=== PATIENT | male | born 1935 | race Caucasian/White ===

== ENCOUNTER 2017-09-02 08:12 | Inpatient (IN) | payer OTHER ==
[~2017-09-02] VITALS: Ht 160 cm; Wt 56.7 kg
[2017-09-02 08:15] VITALS: BP_SYST 112
[2017-09-02] MEDS ORDERED: DEXTROSE 50% JECT 50 ML DISP.SYRIN IVP ONE ×2 (08:30→10:00)
[2017-09-02 09:13] LABS: ANION GAP 8 (5-15); CALCIUM 8.9 mg/dL (8.4-11.0); CHLORIDE 104 mmol/L (98-107); CREATININE 2.48 mg/dL (0.55-1.30); GLUCOSE 110 mg/dL (70-99); HEMATOCRIT 33.4 % (36-54); HEMOGLOBIN 10.8 g/dL (14.0-18.0); MEAN CORPUSCULAR HEMOGLOBIN 31 pg (27-31); MEAN CORPUSCULAR HGB CONC 32 % (32-36); MEAN CORPUSCULAR VOLUME 96 fL (79.0-98.0); PLATELET COUNT (AUTO) 135 K/uL (130-430); POTASSIUM 4.2 mmol/L (3.5-5.1); RED BLOOD CELL COUNT(AUTO) 3.48 MIL/uL (4.2-6.2); RED CELL DISTRIBUTION WIDTH 14.5 % (9.0-15.0); SODIUM SERUM 138 mmol/L (136-145); UREA NITROGEN, BLOOD 54 mg/dL (8-21)
[2017-09-02 09:16] LABS: WHITE BLOOD COUNT (AUTO) 5.7 K/uL (4.8-10.8)
[2017-09-02 09:18] LABS: ALANINE AMINOTRANSFERASE 26 U/L (12-78); ALBUMIN 3.1 g/dL (3.4-4.8); ASPARTATE AMINOTRANSFERASE 34 U/L (10-37); TOTAL BILIRUBIN 0.3 mg/dL (0.0-1.0)
[2017-09-02] MEDS ORDERED: NACL 0.9% 1,000 ML IV ONE (09:30)
[2017-09-02 09:50] LABS: ATYPICAL LYMPHOCYTES % 0 % (0-0); BAND % (MANUAL) 0 % (0-6); BASOPHILS % (MANUAL) 0 % (0-2); EOSINOPHILS % (MANUAL) 3 % (0-7); LYMPHOCYTES % (MANUAL) 20 % (20-46); MONOCYTES % (MANUAL) 7 % (0-11)
[2017-09-02 10:14] LABS: BILIRUBIN,URINE NEGATIVE (NEGATIVE); BLOOD, URINE NEGATIVE (NEGATIVE); CLARITY/URINE CLEAR (CLEAR); COLOR,URINE YELLOW (YELLOW); GLUCOSE,URINE NEGATIVE (NEGATIVE); KETONES,URINE NEGATIVE (NEGATIVE); LEUKOCYTE ESTERASE ,URINE NEGATIVE (NEGATIVE); NITRITE, URINE NEGATIVE (NEGATIVE); PROTEIN URINE NEGATIVE (NEGATIVE); UROBILINOGEN,URINE 0.2 (0.2-1.0)
[2017-09-02] MEDS ORDERED: FURO20TA4 PO (10:58)
[2017-09-02] MEDS ORDERED: CLOP75TA2 PO (11:00)
[2017-09-02] MEDS ORDERED: FERR-57 PO (11:00)
[2017-09-02] MEDS ORDERED: ASPI-1063 PO (11:00)
[2017-09-02] MEDS ORDERED: SITA100T7 PO (11:01)
[2017-09-02] MEDS ORDERED: D5W 1,000 ML IV SCH (11:45)
[2017-09-02 12:50] VITALS: BP_SYST 125
[2017-09-02] MEDS ORDERED: FLU VACC QS 2017-18(36MOS+)/PF 0.5 ML/SYR SYRINGE I.M. PRN (13:15)
[2017-09-02] MEDS ORDERED: INSU100V9 SUBCUT ×2 (14:21)
[2017-09-02] MEDS ORDERED: LIDP TP (14:21)
[2017-09-02] MEDS ORDERED: TEMA15CA51 PO (14:21)
[2017-09-02] MEDS ORDERED: TRAM50TA92 PO (14:21)
[2017-09-02] MEDS ORDERED: GLIM4TAB PO (14:21)
[2017-09-02] MEDS ORDERED: DONE10TA44 PO (14:21)
[2017-09-02] MEDS ORDERED: MELO15TA13 PO (14:21)
[2017-09-02] MEDS ORDERED: TIZA4TAB11 PO (14:21)
[2017-09-02] MEDS ORDERED: ISOS30TA6 PO (14:21)
[2017-09-02] MEDS ORDERED: LIP20 PO (14:21)
[2017-09-02] MEDS ORDERED: POTA-118 PO (14:21)
[2017-09-02] MEDS ORDERED: ALLO100T PO (14:21)
[2017-09-02] MEDS ORDERED: GABA-531 PO (14:21)
[2017-09-02] MEDS ORDERED: LISI-600 PO (14:21)
[2017-09-02 15:06] VITALS: BP_SYST 124
[2017-09-02] MEDS ORDERED: ACETAMINOPHEN 325 MG TABLET PO PRN (17:00)
[2017-09-02] MEDS: FAMOTIDINE 20 MG TABLET PO SCH (17:00)
[2017-09-02] MEDS: D5/0.45 NS 1,000 ML IV SCH (17:48)
[2017-09-02 20:24] VITALS: BP_SYST 109
[2017-09-02] MEDS: ALLOPURINOL 100 MG TABLET (ZYLOPRIM) PO SCH (21:08)
[2017-09-02] MEDS: GABAPENTIN 300 MG CAPSULE PO SCH (21:08)
[2017-09-02] MEDS: ATORVASTATIN 20 MG TABLET PO SCH (21:08)
[2017-09-02] MEDS: DONEPEZIL HCL 5 MG TABLET (ARICEPT) PO SCH (21:08)
[2017-09-02] MEDS: ZOLPIDEM TARTRATE 5 MG TABLET PO PRN (21:18)
[2017-09-02 23:59] VITALS: BP_SYST 126
[2017-09-03] MEDS: D5/0.45 NS 1,000 ML IV SCH (04:29)
[2017-09-03 04:37] VITALS: BP_SYST 122
[2017-09-03 07:19] LABS: BASOPHILS % (AUTO) 0.4 % (0.0-2.0); EOSINOPHILS # (AUTO) 0.3 K/uL (0.0-0.4); EOSINOPHILS % (AUTO) 4.5 % (0.0-4.0); LYMPHOCYTES # (AUTO) 1.6 K/uL (1.0-5.5); LYMPHOCYTES % (AUTO) 25.9 % (20.5-51.5); MEAN CORPUSCULAR HEMOGLOBIN 32 pg (27-31); MEAN CORPUSCULAR HGB CONC 33 % (32-36); MEAN CORPUSCULAR VOLUME 96 fL (79.0-98.0); MONOCYTES # (AUTO) 0.5 K/uL (0.0-1.0); MONOCYTES % (AUTO) 8.6 % (1.7-9.3); NEUTROPHILS # (AUTO) 3.6 K/uL (1.8-7.7); NEUTROPHILS % (AUTO) 60.6 % (40.0-70.0); PLATELET COUNT (AUTO) 161 K/uL (130-430); RED BLOOD CELL COUNT(AUTO) 3.74 MIL/uL (4.2-6.2); RED CELL DISTRIBUTION WIDTH 14.1 % (9.0-15.0)
[2017-09-03 07:51] LABS: ANION GAP 4 (5-15); CALCIUM 9.4 mg/dL (8.4-11.0); CHLORIDE 104 mmol/L (98-107); CREATININE 1.43 mg/dL (0.55-1.30); GLUCOSE 225 mg/dL (70-99); POTASSIUM 4.5 mmol/L (3.5-5.1); SODIUM SERUM 136 mmol/L (136-145); THYROID STIMULATING HORMONE 1.73 uIu/mL (0.34-4.82); UREA NITROGEN, BLOOD 29 mg/dL (8-21)
[2017-09-03 07:57] VITALS: BP_SYST 147
[2017-09-03] MEDS: FAMOTIDINE 20 MG TABLET PO SCH (08:54)
[2017-09-03] MEDS: ALLOPURINOL 100 MG TABLET (ZYLOPRIM) PO SCH ×2 (08:55→20:59)
[2017-09-03] MEDS: CLOPIDOGREL BISULFATE 75 MG TABLET PO SCH (08:55)
[2017-09-03] MEDS: ASPIRIN 81 MG TABLET(ECOTRIN) PO SCH (08:55)
[2017-09-03] MEDS: GABAPENTIN 300 MG CAPSULE PO SCH ×3 (08:55→20:59)
[2017-09-03] MEDS: FERROUS SULFATE 325 MG TABLET.DR PO SCH (08:55)
[2017-09-03 11:45] VITALS: BP_SYST 134
[2017-09-03] MEDS ORDERED: 0.45% NACL 1,000 ML IV SCH (16:45)
[2017-09-03 17:04] VITALS: BP_SYST 138
[2017-09-03] MEDS ORDERED: DEXTROSE 50% JECT 50 ML DISP.SYRIN IVP PRN (17:30)
[2017-09-03] MEDS: INSULIN ASPART 100 UNITS/ML, 10 ML VIAL (NovoLOG) SUBCUT PRN (17:35)
[2017-09-03 20:43] VITALS: BP_SYST 119
[2017-09-03] MEDS: ATORVASTATIN 20 MG TABLET PO SCH (20:59)
[2017-09-03] MEDS: DONEPEZIL HCL 5 MG TABLET (ARICEPT) PO SCH (21:00)
[2017-09-03] MEDS: ZOLPIDEM TARTRATE 5 MG TABLET PO PRN (21:00)
[2017-09-04 00:51] VITALS: BP_SYST 119
[2017-09-04 03:57] VITALS: BP_SYST 151
[2017-09-04 07:23] LABS: ANION GAP 3 (5-15); CALCIUM 9.5 mg/dL (8.4-11.0); CHLORIDE 108 mmol/L (98-107); GLUCOSE 145 mg/dL (70-99); POTASSIUM 4.8 mmol/L (3.5-5.1); SODIUM SERUM 137 mmol/L (136-145); UREA NITROGEN, BLOOD 26 mg/dL (8-21)
[2017-09-04 08:00] VITALS: BP_SYST 155
[2017-09-04] MEDS: GABAPENTIN 300 MG CAPSULE PO SCH (08:41)
[2017-09-04] MEDS: ALLOPURINOL 100 MG TABLET (ZYLOPRIM) PO SCH (08:41)
[2017-09-04] MEDS: CLOPIDOGREL BISULFATE 75 MG TABLET PO SCH (08:41)
[2017-09-04] MEDS: FERROUS SULFATE 325 MG TABLET.DR PO SCH (08:41)
[2017-09-04] MEDS: ASPIRIN 81 MG TABLET(ECOTRIN) PO SCH (08:41)
[2017-09-04] MEDS: FAMOTIDINE 20 MG TABLET PO SCH (08:41)
[2017-09-04] MEDS: INSULIN ASPART 100 UNITS/ML, 10 ML VIAL (NovoLOG) SUBCUT PRN (11:26)
[2017-09-04 12:24] VITALS: BP_SYST 144
[2017-09-04 14:29] VITALS: BP_SYST 140
[2017-09-04 16:35] VITALS: BP_SYST 136
== END 2017-09-04 15:35 | DRG 637 ==
LOC: SED 08:12 → STU 11:34
PROVIDERS: ADMIT Internal Medicine; ATTEND Internal Medicine
DX: E11.649 Type 2 diabetes mellitus with hypoglycemia without coma (principal); G93.41 Metabolic encephalopathy; N17.0 Acute kidney failure with tubular necrosis; E44.0 Moderate protein-calorie malnutrition; N18.9 Chronic kidney disease, unspecified; E11.22 Type 2 diabetes mellitus with diabetic chronic kidney disease; I12.9 Hypertensive chronic kidney disease with stage 1 through stage 4 chronic kidney disease, or unspecified chronic kidney disease; D64.9 Anemia, unspecified; F03.90 Unspecified dementia, unspecified severity, without behavioral disturbance, psychotic disturbance, mood disturbance, and anxiety; I25.10 Atherosclerotic heart disease of native coronary artery without angina pectoris; E78.5 Hyperlipidemia, unspecified; T38.3X5A Adverse effect of insulin and oral hypoglycemic [antidiabetic] drugs, initial encounter; Y92.89 Other specified places as the place of occurrence of the external cause; Z68.22 Body mass index [BMI] 22.0-22.9, adult; Z90.49 Acquired absence of other specified parts of digestive tract; Z95.1 Presence of aortocoronary bypass graft; Z79.4 Long term (current) use of insulin; Z95.5 Presence of coronary angioplasty implant and graft; Z79.84 Long term (current) use of oral hypoglycemic drugs; Z79.02 Long term (current) use of antithrombotics/antiplatelets; Z79.82 Long term (current) use of aspirin; Z79.899 Other long term (current) drug therapy
CPT/HCPCS: 36415; 76770; 80048; 80053; 81003; 82962; 83036; 84443-TC; 85007; 85025; 85027; 87040-TC; 87081; 93005; 96374; 97116-GP; 99285; J1815; J7030; J7060

== ENCOUNTER 2018-09-11 15:10 | Inpatient (IN) | payer MEDICAID, OTHER ==
[~2018-09-11] VITALS: Ht 160 cm; Wt 70.8 kg
--- NOTE | 2018-09-11 06:00 | NUR ---
PHARMACY COMMUNICATION Spoke with Joseline monet order showing on EMAR. Addendum: 09/11/18 at 2312 by Aliyah Wilkes RN Spoke with Pharm at 2310.
[2018-09-11 15:10] VITALS: BP_SYST 146
[~2018-09-11 15:10] MED LIST: ALLO100T PO; ASPI-1153 PO; CLOP75TA2 PO; DONE10TA44 PO; FURO-150 PO; GABA-531 PO; GLIP2.5T3 PO; GLU850 PO; ISOS30TA6 PO; LIP20 PO; NITSL SL; POTA10TA15 PO; SITA100T11 PO; TEMA15CA5 PO; TIZA4TAB11 PO; TRAM50TA92 PO; TRAZ-123 PO
--- NOTE | 2018-09-11 15:10 | NUR ---
Note jose alfredojorge luis in EDM - 09/11/18 at 1555 by JEANNINE Pt states that after he ate breakfast he began to feel dizzy with chills. Pt hot to touch, non-productive cough. Respirations even and non-labored. Denies c/o pain.
--- NOTE | 2018-09-11 15:10 | NUR ---
Pt states that after he ate breakfast he began to feel dizzy with chills. Pt hot to touch, non-productive cough. Respirations even and non-labored.
--- NOTE | 2018-09-11 15:10 | NUR ---
BROUGHT IN BY [facility], PLACED IN BED #2 AND TRIAGED. REPORT GIVEN TO MICHAEL
--- NOTE | 2018-09-11 15:14 | NUR ---
I CALLED OVER TO [facility] FOR REPORT. RECEIVED REPORT FROM MIRNA PLATT.
--- NOTE | 2018-09-11 15:20 | NUR ---
Dr. Little at bedside.
[2018-09-11] MEDS ORDERED: [UNRECOGNIZED DRUG - CODE] TP (15:37)
[2018-09-11] MEDS ORDERED: GLU500 PO (15:37)
[2018-09-11] MEDS ORDERED: HYDR-3606 PO (15:37)
--- NOTE | 2018-09-11 15:37 | NUR ---
Medication reconciliation completed with information provided by SD. Any prior medication reconciliation on file was reviewed and corrected.
[2018-09-11] MEDS ORDERED: NS 1000 ML IV.SOLN IV ONE (15:45)
[2018-09-11] MEDS ORDERED: ACETAMINOPHEN 500 MG TABLET PO ONE (16:00)
[2018-09-11] MEDS ORDERED: VANCOMYCIN HCL 1,000 MG in NS 250 ML IV ONE (16:00)
[2018-09-11] MEDS ORDERED: VANCOMYCIN HCL 1000 MG/VIAL IV ONE (16:05)
[2018-09-11 16:06] LABS: BASOPHILS % (AUTO) 0.5 % (0.0-2.0); EOSINOPHILS # (AUTO) 0.1 K/uL (0.0-0.4); EOSINOPHILS % (AUTO) 1.3 % (0.0-4.0); HEMATOCRIT 42.2 % (36-54); HEMOGLOBIN 13.4 g/dL (14.0-18.0); LYMPHOCYTES # (AUTO) 0.5 K/uL (1.0-5.5); LYMPHOCYTES % (AUTO) 6.6 % (20.5-51.5); MEAN CORPUSCULAR HEMOGLOBIN 31 pg (27-31); MEAN CORPUSCULAR HGB CONC 32 % (32-36); MEAN CORPUSCULAR VOLUME 98 fL (79.0-98.0); MONOCYTES # (AUTO) 0.4 K/uL (0.0-1.0); MONOCYTES % (AUTO) 5.7 % (1.7-9.3); NEUTROPHILS # (AUTO) 5.9 K/uL (1.8-7.7); NEUTROPHILS % (AUTO) 85.9 % (40.0-70.0); PLATELET COUNT (AUTO) 188 K/uL (130-430); RED BLOOD CELL COUNT(AUTO) 4.32 MIL/uL (4.2-6.2); RED CELL DISTRIBUTION WIDTH 14.8 % (9.0-15.0); WHITE BLOOD COUNT (AUTO) 6.9 K/uL (4.8-10.8)
[2018-09-11 16:15] LABS: PROTHROMBIN TIME 10.1 SECS (9.5-12.5)
[2018-09-11 16:16] LABS: ALANINE AMINOTRANSFERASE 43 U/L (12-78); ALBUMIN 3.3 g/dL (3.4-4.8); ASPARTATE AMINOTRANSFERASE 31 U/L (10-37); CALCIUM 9.2 mg/dL (8.4-11.0); CHLORIDE 101 mmol/L (98-107); CREATININE 1.55 mg/dL (0.55-1.30); GLUCOSE 347 mg/dL (70-99); POTASSIUM 4.7 mmol/L (3.5-5.1); SODIUM SERUM 135 mmol/L (136-145); TOTAL BILIRUBIN 0.7 mg/dL (0.0-1.0); UREA NITROGEN, BLOOD 36 mg/dL (8-21)
[2018-09-11 16:23] LABS: ANION GAP 9 (5-15)
[2018-09-11] MEDS ORDERED: INSULIN REGULAR, HUMAN 10 UNITS/0.1 ML INJ IVP ONE (16:30)
[2018-09-11 16:46] LABS: BILIRUBIN,URINE NEGATIVE (NEGATIVE); BLOOD, URINE 1+ (NEGATIVE); CLARITY/URINE CLEAR (CLEAR); COLOR,URINE YELLOW (YELLOW); GLUCOSE,URINE 3+ (NEGATIVE); KETONES,URINE NEGATIVE (NEGATIVE); LEUKOCYTE ESTERASE ,URINE NEGATIVE (NEGATIVE); NITRITE, URINE NEGATIVE (NEGATIVE); PH,URINE 5.5 (5.0-8.0); PROTEIN URINE 1+ (NEGATIVE); UROBILINOGEN,URINE 0.2 (0.2-1.0)
[2018-09-11 16:53] LABS: BACTERIA,URINE FEW /HPF (None Seen); MUCUS,URINE None Seen /LPF (None Seen); RBC,URINE 0-3 /HPF (0-3); WBC,URINE NONE SEEN /HPF (0-3)
--- NOTE | 2018-09-11 17:00 | NUR ---
Resting quietly, eyes clothes, even and non-labored respirations, easily awakens, no needs verbalized at this time. VSS. Family member at bedside.
--- NOTE | 2018-09-11 18:06 | NUR ---
Patient will be admitted to care of Dr. Knight. Admitted to Tele unit. Will go to room 121A. Belongings list completed. Summary report printed. Report will be given at bedside.
--- NOTE | 2018-09-11 18:12 | NUR ---
Dr. Little at bedside to update pt and family member of POC.
--- NOTE | 2018-09-11 18:29 | NUR ---
ADMISSION NOTE Received patient from ER via gurney. Patient admitted with diagnosis of . Patient is awake, alert, oriented X 4. Patient oriented to hospital room, call light, toileting, pain management and safety-teach back done. Patient informed that Rossi will be RN nurse and that their room number is 121C. Personal belongings checked and Belongings List documented. Call light within reach.
[2018-09-11 18:47] VITALS: BP_SYST 116
--- NOTE | 2018-09-11 19:45 | NUR ---
Initial RN note Pt received from ED, Pt AAO, no acute distress noted VSS, satting at 94% on room air. Pt eating dinner at this time. HOB elevated. Pt's daughter at bedside. Call light within reach. Safety measures in place. Bed alarm on. Will continue to monitor.
[2018-09-11] MEDS ORDERED: PIPERACILLIN/TAZO 3.375 GM in NS 50 ML IV SCH (20:00)
--- NOTE | 2018-09-11 21:25 | NUR ---
Dr. Brizuelaium here to examine pt.
[2018-09-11 21:30] VITALS: BP_SYST 100
[2018-09-11] MEDS ORDERED: PIPERACILLIN/TAZOBACTAM 3.375 GM/VIAL (ZOSYN) IV ONE ×2 (21:43→21:54)
[2018-09-11] MEDS ORDERED: NITROGLYCERIN 0.4 MG TAB.SUBL SL SCH (21:45)
[2018-09-11] MEDS ORDERED: TEMAZEPAM 15 MG CAPSULE PO PRN (21:45)
[2018-09-11] MEDS ORDERED: HYDROcodone/ACETAMIN 5-325 MG TAB (NORCO/ VICODIN) PO PRN (21:45)
[2018-09-11] MEDS ORDERED: LevALBUTEROL HCL 1.25 MG/0.5 ML *CONC.* VIAL.NEB (XOPENEX CONC.) INH PRN (21:45)
[2018-09-11] MEDS: traMADol HCL HCL 50 MG TABLET (ULTRAM) PO SCH (22:19)
[2018-09-11] MEDS: KCL 20 mEq in D5/0.45NS 1000mL 1,000 ML IV SCH (22:20)
--- NOTE | 2018-09-11 22:30 | NUR ---
IV Fluids/accucheck Pt asleep easily arousable. IV fluids/antibiotic started as ordered R. AC 20G clear, patent. Blood sugar checked 282, 6 units of Reg insulin given per protocol. Encouraged pt to use call light, pt verb understanding. Call light within reach. To monitor.
[2018-09-11 22:34] VITALS: BP_SYST 116
[2018-09-11] MEDS: INSULIN REGULAR, HUMAN 100 UNITS/ML, 10 ML VIAL (novoLIN R) SUBCUT PRN (22:39)
[2018-09-11] MEDS ORDERED: PIPERACILLIN/TAZOBACTAM 2.25 GM in NS 50 ML IV SCH (23:00)
[2018-09-11] MEDS: LevALBUTEROL HCL 1.25 MG/0.5 ML *CONC.* VIAL.NEB (XOPENEX CONC.) INH SCH (23:12)
[2018-09-12] MEDS ORDERED: PIPERACILLIN/TAZO 3.375/DEX-IS 50 ML IV SCH
--- NOTE | 2018-09-12 00:35 | NUR ---
Rounds Pt asleep. No s/s distress noted. Call light within reach. Bed alarm on. To monitor.
[2018-09-12 00:40] VITALS: BP_SYST 103
--- NOTE | 2018-09-12 02:40 | NUR ---
Rounds Pt assisted to the bathroom per CARE MANAGEMENT ASSISTANT with a walker. Pt voided. Maintained safety precaution. Bed alarm on. Call light within reach. To monitor.
[2018-09-12] MEDS ORDERED: PIPERACILLIN/TAZOBACTAM 2.25 GM VIAL IV ONE (05:35)
[2018-09-12] MEDS: PIPERACILLIN/TAZOBACTAM 2.25 GM in NS 50 ML IV SCH ×4 (05:48→23:33)
--- NOTE | 2018-09-12 06:22 | NUR ---
Closing notes Pt alert/awake. Accucheck 169, 2 units of Reg insulin given per protocol. Pt denies any pain at this time. IVF infusing R. AC 20 G no infiltration noted. Call light/urinal within reach. Safety measures in place. Endorsed to IT SYSTEMS ANALYST CONSULTANT Annemarie.
[2018-09-12] MEDS: INSULIN REGULAR, HUMAN 100 UNITS/ML, 10 ML VIAL (novoLIN R) SUBCUT PRN ×4 (06:24→22:10)
[2018-09-12 07:07] LABS: ANION GAP 6 (5-15); BASOPHILS % (AUTO) 0.8 % (0.0-2.0); CALCIUM 8.6 mg/dL (8.4-11.0); CHLORIDE 105 mmol/L (98-107); CREATININE 1.45 mg/dL (0.55-1.30); EOSINOPHILS # (AUTO) 0.3 K/uL (0.0-0.4); EOSINOPHILS % (AUTO) 4.9 % (0.0-4.0); GLUCOSE 182 mg/dL (70-99); HEMATOCRIT 35.5 % (36-54); HEMOGLOBIN 11.8 g/dL (14.0-18.0); LYMPHOCYTES # (AUTO) 0.9 K/uL (1.0-5.5); LYMPHOCYTES % (AUTO) 16.5 % (20.5-51.5); MEAN CORPUSCULAR HEMOGLOBIN 33 pg (27-31); MEAN CORPUSCULAR HGB CONC 33 % (32-36); MEAN CORPUSCULAR VOLUME 99 fL (79.0-98.0); MONOCYTES # (AUTO) 0.5 K/uL (0.0-1.0); MONOCYTES % (AUTO) 8.5 % (1.7-9.3); NEUTROPHILS % (AUTO) 69.3 % (40.0-70.0); PLATELET COUNT (AUTO) 142 K/uL (130-430); POTASSIUM 4.1 mmol/L (3.5-5.1); RED CELL DISTRIBUTION WIDTH 14.9 % (9.0-15.0); SODIUM SERUM 138 mmol/L (136-145); UREA NITROGEN, BLOOD 31 mg/dL (8-21); WHITE BLOOD COUNT (AUTO) 5.7 K/uL (4.8-10.8)
[2018-09-12] MEDS: LevALBUTEROL HCL 1.25 MG/0.5 ML *CONC.* VIAL.NEB (XOPENEX CONC.) INH SCH ×3 (07:13→22:16)
[2018-09-12 07:25] VITALS: BP_SYST 123
--- NOTE | 2018-09-12 07:40 | NUR ---
AM NOTES: Received patient alert, awake, oriented, receiving breathing treatment,no s/s of cardiopulmonary distress. saturation 100%. vital sign stable, afebrile. ivf infusing well site patent. no swelling or infiltration noted. white board updated. will assess after treatment.call light within reach, bed is low and lock position.
[2018-09-12] MEDS: GABAPENTIN 300 MG CAPSULE PO SCH (09:01)
[2018-09-12] MEDS: CLOPIDOGREL BISULFATE 75 MG TABLET PO SCH (09:02)
[2018-09-12] MEDS: POTASSIUM CHLORIDE 10 MEQ TAB.PRT.SR PO SCH (09:02)
[2018-09-12] MEDS: ISOSORBIDE MONONITRATE 30 MG TAB.ER.24H PO SCH (09:03)
[2018-09-12] MEDS: ALLOPURINOL 100 MG TABLET (ZYLOPRIM) PO SCH ×2 (09:03→22:07)
[2018-09-12] MEDS: FUROSEMIDE 20 MG TABLET PO SCH (09:05)
[2018-09-12] MEDS: ASPIRIN 81 MG TABLET(ECOTRIN) PO SCH (09:07)
[2018-09-12] MEDS: glipiZIDE XL 2.5 MG/TAB (GLUCOTROL XL) PO SCH (09:08)
[2018-09-12] MEDS: KCL 20 mEq in D5/0.45NS 1000mL 1,000 ML IV SCH ×2 (11:10→16:54)
[2018-09-12] MEDS: traMADol HCL HCL 50 MG TABLET (ULTRAM) PO SCH ×2 (11:12→22:07)
--- NOTE | 2018-09-12 11:30 | NUR ---
ACCUCHECK: BLOOD SUGAR 254, 6 UNITS OF REGULAR INSULIN ADMINISTERED AT LEFT UPPER ARM.
[2018-09-12 12:06] VITALS: BP_SYST 110
[2018-09-12] MEDS: VANCOMYCIN HCL 750 MG in NS 250 ML IV SCH (15:05)
--- NOTE | 2018-09-12 15:12 | NUR ---
MD ordered to check saturation : patient stated sob on exertion. dx of pna. 98% on room air. MD ordered to placed 1 liter.
[2018-09-12 16:41] VITALS: BP_SYST 115
--- NOTE | 2018-09-12 18:13 | NUR ---
close notes: all needs mets. vital sign stable, afebrile. no s/s of cardiopulmonary distress. standby assist need when going to the restroom. pt and family updated about the POC. verbalized understanding. no other concerned noted.encourage to call when assistance needed. will endorsed to incoming nurse.
[2018-09-12 20:15] VITALS: BP_SYST 119
--- NOTE | 2018-09-12 20:35 | NUR ---
PATIENT AWAKE SITTING UP IN BED ON NASAL CANNULA @ 1 LPM 02 SAT 96 % SKIN DRY WARM FALL RISK IS HIGH , BED ALARM IS ON PROCEDURES EXPLAINED ASSIST NEEDED .
[2018-09-12] MEDS: traZODone HCL 50 MG TABLET (DESYREL) PO SCH (22:06)
[2018-09-12] MEDS: ATORVASTATIN 20 MG TABLET PO SCH (22:06)
[2018-09-12] MEDS: tiZANidine HCL 4 MG TABLET PO SCH (22:07)
[2018-09-12] MEDS: DONEPEZIL HCL 5 MG TABLET (ARICEPT) PO SCH (22:07)
--- NOTE | 2018-09-12 22:45 | NUR ---
BLOOD SUGAR 199 MG DL , 2 UNITS REGULAR INSULIN SUB Q. ADMINISTER LEFT REAR DELTOID , PATIENT ON CCHO PO DIET JUICE PO GIVEN , TOLERATE .
[2018-09-13 00:29] VITALS: BP_SYST 108
--- NOTE | 2018-09-13 01:51 | NUR ---
ULTRAM 50N MG PO ADMINISTER FOR DISCOMFORT ROUTINE & HELPFUL .
--- NOTE | 2018-09-13 01:53 | NUR ---
ASSIST PATIENT FOR USE OF URINAL CLEAR YELLOW URINE OUT PUT NOTED , PATIENT SIPPING ON WATER PO & TOLERATING .
--- NOTE | 2018-09-13 01:54 | NUR ---
PATIENT ON 02 NASAL CANNULA 1 LPM HOB KEPT ELEVATED , PATIENT IS ALERT FALL MEASURES IMPLEMENTED & EFFECTIVE ASSIST NEEDED BED TO LOW POSITION .
--- NOTE | 2018-09-13 02:33 | NUR ---
PATIENT RESTING THIS HOUR ABLE TO SELF TURN & REPOSITION HOB ELEVATED CHEST MOVEMENT SYMMETRICAL UNLABORED ON ROOM AIR assist as needed bed alarm is ON .
[2018-09-13] MEDS: PIPERACILLIN/TAZOBACTAM 2.25 GM in NS 50 ML IV SCH ×3 (05:53→17:19)
[2018-09-13] MEDS: INSULIN REGULAR, HUMAN 100 UNITS/ML, 10 ML VIAL (novoLIN R) SUBCUT PRN ×3 (05:56→22:24)
--- NOTE | 2018-09-13 06:06 | NUR ---
PATIENT AWAKE ALERT BSG @ 212 MG DL , 4 UNITS OF REGULAR INSULIN SUB Q . ADMINISTER LEFT LOWER ABDOMEN .
[2018-09-13 06:35] LABS: ANION GAP 7 (5-15); CALCIUM 8.7 mg/dL (8.4-11.0); CHLORIDE 102 mmol/L (98-107); CREATININE 1.39 mg/dL (0.55-1.30); GLUCOSE 228 mg/dL (70-99); POTASSIUM 4.4 mmol/L (3.5-5.1); SODIUM SERUM 135 mmol/L (136-145); UREA NITROGEN, BLOOD 23 mg/dL (8-21)
[2018-09-13 06:40] LABS: BASOPHILS % (AUTO) 0.6 % (0.0-2.0); EOSINOPHILS # (AUTO) 0.3 K/uL (0.0-0.4); EOSINOPHILS % (AUTO) 5.6 % (0.0-4.0); HEMATOCRIT 36.3 % (36-54); HEMOGLOBIN 12.1 g/dL (14.0-18.0); LYMPHOCYTES # (AUTO) 0.7 K/uL (1.0-5.5); LYMPHOCYTES % (AUTO) 13.9 % (20.5-51.5); MEAN CORPUSCULAR HEMOGLOBIN 33 pg (27-31); MEAN CORPUSCULAR HGB CONC 33 % (32-36); MEAN CORPUSCULAR VOLUME 98 fL (79.0-98.0); MONOCYTES # (AUTO) 0.5 K/uL (0.0-1.0); MONOCYTES % (AUTO) 9.4 % (1.7-9.3); NEUTROPHILS # (AUTO) 3.6 K/uL (1.8-7.7); NEUTROPHILS % (AUTO) 70.5 % (40.0-70.0); PLATELET COUNT (AUTO) 140 K/uL (130-430); RED BLOOD CELL COUNT(AUTO) 3.71 MIL/uL (4.2-6.2); RED CELL DISTRIBUTION WIDTH 15.2 % (9.0-15.0); WHITE BLOOD COUNT (AUTO) 5.1 K/uL (4.8-10.8)
[2018-09-13] MEDS: LevALBUTEROL HCL 1.25 MG/0.5 ML *CONC.* VIAL.NEB (XOPENEX CONC.) INH SCH ×2 (07:18→23:30)
--- NOTE | 2018-09-13 07:48 | NUR ---
INITIAL NOTE PT AAO X3, RECEIVING BREATHIGN TREATMENT AT THIS TIME. NO S/S OF ACUTE DISTRESS OR PAIN, VSS. IVF INFUSING TO RAC 20GG AT ORDERED RATE, NASAL CANULA AT BEDSIDE FOR 1 LITER O2 PRN. PLAN OF CARE DISCUSSED, PT VERBALIZED UNDERSTANDING, SAFETY PRECAUTIONS IN PLACE, BED ALARM ON, ROOM LOCATED IN FRONT OF NURSING STATION, WILL MONITOR PT CLOSELY
[2018-09-13 08:03] VITALS: BP_SYST 125
[2018-09-13] MEDS: POTASSIUM CHLORIDE 10 MEQ TAB.PRT.SR PO SCH (08:19)
[2018-09-13] MEDS: ASPIRIN 81 MG TABLET(ECOTRIN) PO SCH (08:19)
[2018-09-13] MEDS: glipiZIDE XL 2.5 MG/TAB (GLUCOTROL XL) PO SCH (08:19)
[2018-09-13] MEDS: ISOSORBIDE MONONITRATE 30 MG TAB.ER.24H PO SCH (08:20)
[2018-09-13] MEDS: CLOPIDOGREL BISULFATE 75 MG TABLET PO SCH (08:20)
[2018-09-13] MEDS: ALLOPURINOL 100 MG TABLET (ZYLOPRIM) PO SCH ×2 (08:20→22:16)
[2018-09-13] MEDS: GABAPENTIN 300 MG CAPSULE PO SCH (08:20)
[2018-09-13] MEDS: FUROSEMIDE 20 MG TABLET PO SCH (08:20)
[2018-09-13] MEDS: traMADol HCL HCL 50 MG TABLET (ULTRAM) PO SCH ×2 (09:04→22:17)
--- NOTE | 2018-09-13 09:22 | NUR ---
Nutrition Update Bentley Scale 16 noted. Pt admitted for possible aspiration pneumonia. Diet: [facility] BMI: 26.9 kg/m2 RD to follow per nutrition care standards.
--- NOTE | 2018-09-13 10:15 | NUR ---
ROUNDS PT LAYING TO SIDE IN BED, RESTING, EVEN RISE AND FALL OF CHEST NOTED, NASAL CANULA IN PLACE WITH O2 AT 1 LITER, NO S/S OF ACUTE DISTRESS OR PAIN. DAUGHTER TESSA CALLED RN , UPDATED ON PT STATUS AND PLAN OF CARE, WILL CALL DAUGHTER LATER IN DAY AFTER MD HAS MADE ROUNDS. PHONE CALL TRANSFERRED TO ROOM, NOW PT SPEAKING WITH DAUGHTER. CALL LIGHT IN HAND, SAFETY PRECAUTIONS IN PLACE, WILL CONTINUE TO MONITOR PT CLOSELY.
--- NOTE | 2018-09-13 11:30 | NUR ---
BLOOD SUGAR 335, COVERED PER SLIDING SCALE. IV ANTIBIOTIC ZOSYN HANGED, IV SITE ASSESSED, STILL PATENT AND INTACT, NO S/S OF INFILTRATION NOTED. PT STATES HE IS NOTE GOING TO EAT BECAUSE HE SON IS COMING DOWN TO VISIT HIM AND HE WILL TAKE HIM TO RESTAURANT TO EAT AND BRING HIM BACK. PT EDUCATED THAT HE HAS TO BE DISCHARGED BY MD FIRST, AND HE HASN'T. BUT SON IS MORE THAN WELCOME TO BRING FOOD FROM A RESTAURANT FOR HIM TO EAT HERE DURING HIS STAY, PT VERBALIZED UNDERSTANDING. CALL LIGHT WITHIN REACH, WILL FOLLOW UP
[2018-09-13 11:56] VITALS: BP_SYST 124
--- NOTE | 2018-09-13 13:38 | NUR ---
ROUNDS PT NOTED TO BE ASSISTED TO RESTROOM WITH FWW. MODERATE ASSISTANCE NEEDED. PT ABLE TO GET UP TO RR AND VOID, PT RETURNED TO BED, DOES NOT WANT TO SIT IN BEDSIDE CHAIR, STATES HE WILL GET UP WHEN HIS SON COMES, WILL FOLLOW PUP
[2018-09-13] MEDS: VANCOMYCIN HCL 750 MG in NS 250 ML IV SCH (15:14)
[2018-09-13] MEDS: KCL 20 mEq in D5/0.45NS 1000mL 1,000 ML IV SCH (15:14)
[2018-09-13 15:17] VITALS: BP_SYST 138
--- NOTE | 2018-09-13 15:34 | NUR ---
IV ANTIBIOTIC AND IVF HANGED. IV ANTIBIOTIC VANCOMYCIN HANGED AND IVF CHANGED TO NEW BAG, IV SITE RIGHT AC PATENT, NO S/S OF INFILTRATION NOTED. PT STATES HE IS WAITING FOR HIS SON TO COME, HE WILL BRING HIM GOOD FOOD. PT IS LOOKING FORWARD TP SON COMING. CALL LIGHT WITHIN REACH, SAFETY PRECAUTIONS IN PLACE, WILL FOLLOW UP
--- NOTE | 2018-09-13 17:20 | NUR ---
BLOOD SUGAR 137, NO COVERAGE NEEDED PER SLIDING SCALE. IV ANTIBIOTIC HANGED. SON AT BEDSIDE. UPDATED ON PT STATUS AND PLAN OF CARE. SECURED NASAL CANULA IN PLACE, CALL LIGHT WITHIN REACH, WILL FOLLOW UP
--- NOTE | 2018-09-13 18:45 | NUR ---
CLOSING NOTE PT LAYING TO SIDE IN BED, RELAXING. NO S/S OF ACUTE DISTRESS OR PAIN. BREATHIGN EVEN AND UNLABORED, NASAL CANULA IN PLACE, IVF INFUSING TO RAC AT ORDERED RATE. IV SITE PATENT AND INTACT. ALL NEEDS ATTENDED TO THROUGHOUT SHIFT, SAFETY PRECAUTIONS MAINTAINED, CALL LIGHT WITHIN REACH, WILL GIVE REPORT TO FOLLOWING SHIFT
[2018-09-13 20:00] VITALS: BP_SYST 132
--- NOTE | 2018-09-13 20:00 | NUR ---
INITIAL NOTES: PATIENT IN BED AWAKE ,ALERT ORIENTED X4. DENIES PAIN NOR SOB. TOLERABLE LOW BACK PAIN. IVF INFUSING AT 60ML/HR.,SITE RT. AC CLEAR. O2 AT 2 LITER N/C. BREATHING TX DONE BY RT. SCD RE APPLIED. SINUS RHYTHM .CALL GOEL WITHIN REACH. BED IN LOW POSITION. WILL MONITOR CLOSELY.
--- NOTE | 2018-09-13 21:45 | NUR ---
ALL DUE MEDS GIVEN. NO S/SOF HYPO/HYPERGLYCEMIA.
[2018-09-13] MEDS: DONEPEZIL HCL 5 MG TABLET (ARICEPT) PO SCH (22:16)
[2018-09-13] MEDS: ATORVASTATIN 20 MG TABLET PO SCH (22:16)
[2018-09-13] MEDS: traZODone HCL 50 MG TABLET (DESYREL) PO SCH (22:16)
[2018-09-13] MEDS: tiZANidine HCL 4 MG TABLET PO SCH (22:17)
[2018-09-13 23:45] VITALS: BP_SYST 140
[2018-09-14] MEDS: PIPERACILLIN/TAZOBACTAM 2.25 GM in NS 50 ML IV SCH ×3 (00:25→11:52)
--- NOTE | 2018-09-14 01:30 | NUR ---
ASSISTED BY CARDIOPULMONARY SUPERVISOR TO BATHROOM TO HAVE BOWEL MOVEMENT.
--- NOTE | 2018-09-14 02:33 | NUR ---
patient is sleeping peacefull in his bed with out any complained
[2018-09-14] MEDS: KCL 20 mEq in D5/0.45NS 1000mL 1,000 ML IV SCH (05:59)
[2018-09-14] MEDS: INSULIN REGULAR, HUMAN 100 UNITS/ML, 10 ML VIAL (novoLIN R) SUBCUT PRN ×2 (06:07→11:52)
--- NOTE | 2018-09-14 06:30 | NUR ---
CLOSING: ALL NEEDS WERE ATTENDED. ROUNDS DONE. NEEDS ATTENDED .NO ACUTE CARDIOPULMONARY DISTRESS WHOLE SHIFT.
[2018-09-14 07:12] VITALS: BP_SYST 140
[2018-09-14] MEDS: LevALBUTEROL HCL 1.25 MG/0.5 ML *CONC.* VIAL.NEB (XOPENEX CONC.) INH SCH ×2 (07:12→15:16)
[2018-09-14 08:02] VITALS: BP_SYST 140
--- NOTE | 2018-09-14 08:08 | NUR ---
INITIAL NOTE PT LAYING TO SIDE IN BED, AWAKE, RECEIVING BREATHING TREATMENT, NO S/S OF ACUTE DISTRESS OR PAIN, BREATHING EVEN AND UNLABORED. PLAN OF CARE DISCUSSED, SAFETY PRECAUTIONS DISCUSSED, PT VERBALIZED UNDERSTANDING. CALL LIGHT WITHIN REACH, WILL FOLLOW UP
[2018-09-14] MEDS: ASPIRIN 81 MG TABLET(ECOTRIN) PO SCH (08:51)
[2018-09-14] MEDS: POTASSIUM CHLORIDE 10 MEQ TAB.PRT.SR PO SCH (08:51)
[2018-09-14] MEDS: CLOPIDOGREL BISULFATE 75 MG TABLET PO SCH (08:51)
[2018-09-14] MEDS: ALLOPURINOL 100 MG TABLET (ZYLOPRIM) PO SCH (08:51)
[2018-09-14] MEDS: GABAPENTIN 300 MG CAPSULE PO SCH (08:51)
[2018-09-14] MEDS: ISOSORBIDE MONONITRATE 30 MG TAB.ER.24H PO SCH (08:51)
[2018-09-14] MEDS: glipiZIDE XL 2.5 MG/TAB (GLUCOTROL XL) PO SCH (08:52)
[2018-09-14] MEDS: FUROSEMIDE 20 MG TABLET PO SCH (08:52)
[2018-09-14] MEDS: traMADol HCL HCL 50 MG TABLET (ULTRAM) PO SCH (09:40)
--- NOTE | 2018-09-14 10:00 | NUR ---
TRAMADOL ADMINISTERED PT REQUESTING TO GET UP AND WALK AROUND UNIT, EDUCATED THAT HE WILL NEED SUPERVISION FOR SAFETY AND WHEN STAFF IS AVAILABLE WE WILL WALK HIM. PT VERBALIZED AGREEMENT, WILL FOLLOWUP
--- NOTE | 2018-09-14 11:42 | NUR ---
NOTES ASSISTED PATIENT AROUND THE HOSPITAL WALKING WITH THE WALKER. PATIENT DID REALLY WELL WALKING WITHOUT ANY SHORTNESS OF BREATH.
--- NOTE | 2018-09-14 12:31 | NUR ---
BLOOD SUGAR 164/ IV ANTIBIOTIC HANGED BLOOD SUGAR COVERED PER SLIDING SCALE. PT DENIES ANY NEEDS AT THIS TIME, CALL LIGHT WITHIN REACH, WILL FOLLOW UP
[2018-09-14 12:33] VITALS: BP_SYST 139
--- NOTE | 2018-09-14 14:15 | NUR ---
ROUNDS PT SITTING UP IN BED, SPEAKING WITH CASE MANAGEMENT DIAZ AT BEDSIDE. NO S/S OF RESPIRATORY DISTRESS OR DISCOMFORT. PT DENIES ANY NEEDS AT THIS TIME. NASAL CANULA IN PLACE, CALL LIGHT WITHIN REACH, WILL FOLLOW UP
--- NOTE | 2018-09-14 15:15 | NUR ---
DR WAITE AT BEDSIDE, WILL CARRY OUT ANY NEW ORDERS Addendum: 09/14/18 at 1517 by Barb Liang RN PT TAKEN OF O2 FOR 5 MINUTES TO ASSESS HOW PT TOLERATES, PER MD. PT SATURATES 97% ON ROOM AIR, NO S/S OF ACUTE DISTRESS, BREATHING EVEN AND UNLABORED. PER MD, KEEP PT OFF O2 AND MAY SALINE LOCK IV SITE,
--- NOTE | 2018-09-14 15:50 | NUR ---
SPOKE WITH RADHA AT [facility] TO ARRANGE AUTO EMISSIONS TECHNICIAN FOR PATIENT BACK HOME, RADHA TO LET ANSELMO THE PRODUCTION REPAIRER KNOW OF PENDING AUTO EMISSIONS TECHNICIAN, FACILITY TO RETURN PHONE CALL
--- NOTE | 2018-09-14 15:52 | NUR ---
FOLLOW UP APPT ARRANGED WITH PCP PER CHF DISCHARGE PROTOCOL TOM OBRIEN AT DR SIERRA OFFICE, F/U APPT IS WITHIN 7 DAYS OF DISCHARGE ON DATE : Friday09/18/18 TIME: 0945AM LOCATION: [address] [place], [place] [id number] WITH DR. SIERRA, FREDY DAUGHTER TESSA AND PATIENT MADE AWARE.
[2018-09-14] MEDS: VANCOMYCIN HCL 750 MG in NS 250 ML IV SCH (16:12)
--- NOTE | 2018-09-14 16:47 | NUR ---
SPOKE WITH VERONA FROM [facility], SHE STATED NEUROLOGY PHYSICIAN ASSISTANT WOULD BE HERE IN 20 MINUTES IF PT WILL BE READY, MADE AWARE THAT PT WILL BE READY. PENDING NEUROLOGY PHYSICIAN ASSISTANT
[2018-09-14 16:57] VITALS: BP_SYST 128
[2018-09-14 16:58] VITALS: BP_SYST 139
--- NOTE | 2018-09-14 17:21 | NUR ---
TRANSITION OF CARE/ DISCHARGE INSTRUCTIONS PT EDUCATED TO FOLLOW UP WITH PCP ON FRIDAY APPT ALREADY ARRANGED, DAUGHTER TESSA AWARE
--- NOTE | 2018-09-14 17:27 | NUR ---
D/C Patient Patient given medication reconciliation form and D/C instructions. Exit Care provided. Patient verbalized understanding. MD discussed with patient the results and treatment provided. Ambulatory with steady gait for discharge to home. Patient in stable condition, ID band removed. IV catheter removed, intact and dressing applied, no active bleeding. Patient educated on pain management. All belongings sent with patient.PATIENT LEFT WITH ANSELMO FROM [facility].
== END 2018-09-14 17:27 | disposition home or self-care (01) | DRG 178 ==
LOC: SED 15:10 → STU 18:12
PROVIDERS: ADMIT Family Medicine; ATTEND Family Medicine
DX: J69.0 Pneumonitis due to inhalation of food and vomit (principal); N17.9 Acute kidney failure, unspecified; F03.90 Unspecified dementia, unspecified severity, without behavioral disturbance, psychotic disturbance, mood disturbance, and anxiety; I11.0 Hypertensive heart disease with heart failure; I50.9 Heart failure, unspecified; E11.65 Type 2 diabetes mellitus with hyperglycemia; E78.5 Hyperlipidemia, unspecified; Z79.899 Other long term (current) drug therapy; Z95.1 Presence of aortocoronary bypass graft; Z79.4 Long term (current) use of insulin
CPT/HCPCS: 36415; 71045; 80048; 80053; 81000-TC; 82962; 83605; 84484; 85025; 85610-TC; 85730-TC; 87040-TC; 87086; 93005; 94640; 94760; 96361; 96374; 96375; 99285; J1815; J2543; J3370; J7030; J7050; J7612

== ENCOUNTER 2018-10-23 23:32 | Inpatient (IN) | payer OTHER ==
[~2018-10-23] VITALS: Ht 167.6 cm; Wt 78.9 kg
[~2018-10-23 23:32] MED LIST changes: +GLU500 PO; +HYDR-3606 PO; +[UNRECOGNIZED DRUG - CODE] TP
--- NOTE | 2018-10-23 23:45 | NUR ---
Patient to ER bed 7 to gown for evaluation. Side rails up.
[2018-10-23 23:50] VITALS: BP_SYST 121
--- NOTE | 2018-10-23 23:55 | NUR ---
ER at bedside examining patient.
--- NOTE | 2018-10-23 23:58 | NUR ---
Patient arrived from [facility], S/P fall, unwitnessed. Fall occured in the bathroom with unknown length of time the patient was on the ground. Patient is AOx1, speaks minimal amount of upper sorbian. On 2L NC with o2 saturation at 97%. Patient denies any pain, N/V, or fever. Patient is unable to ambulate or give urine sample at this time.
[2018-10-24] VITALS (15 sets, daily range): BP systolic 104–145
--- NOTE | 2018-10-24 00:30 | NUR ---
Note samir in ED - 10/24/18 at 0322 by WENDI Patient to bed 7 to [facility] for evaluation. Side rails up.
[2018-10-24] MEDS ORDERED: NACL 0.9% 1,000 ML IV ONE ×2 (00:45→01:30)
--- NOTE | 2018-10-24 00:45 | NUR ---
Dilma dawson in ED - 10/24/18 at 0321 by SDNLIBERTAD NAPOLEON Pena at bedside examining patient.
--- NOTE | 2018-10-24 01:05 | NUR ---
# 22 gauge angiocath placed to Right Forearm. Use of asceptic technique. Opsite placed over site. Blood return noted. Blood for lab drawn from site. Flushed with 10 cc of normal saline. No evidence of infiltration noted. Patient tolerated well.
[2018-10-24 01:09] LABS: BASOPHILS # (AUTO) 0.1 K/uL (0.0-0.2); BASOPHILS % (AUTO) 0.7 % (0.0-2.0); EOSINOPHILS % (AUTO) 0.2 % (0.0-4.0); HEMATOCRIT 42.4 % (36-54); HEMOGLOBIN 13.9 g/dL (14.0-18.0); LYMPHOCYTES # (AUTO) 1.1 K/uL (1.0-5.5); LYMPHOCYTES % (AUTO) 11.3 % (20.5-51.5); MEAN CORPUSCULAR HEMOGLOBIN 33 pg (27-31); MEAN CORPUSCULAR HGB CONC 33 % (32-36); MEAN CORPUSCULAR VOLUME 100 fL (79.0-98.0); MONOCYTES # (AUTO) 0.5 K/uL (0.0-1.0); MONOCYTES % (AUTO) 5.5 % (1.7-9.3); NEUTROPHILS # (AUTO) 7.8 K/uL (1.8-7.7); NEUTROPHILS % (AUTO) 82.3 % (40.0-70.0); PLATELET COUNT (AUTO) 150 K/uL (130-430); RED BLOOD CELL COUNT(AUTO) 4.26 MIL/uL (4.2-6.2); RED CELL DISTRIBUTION WIDTH 14.7 % (9.0-15.0); WHITE BLOOD COUNT (AUTO) 9.5 K/uL (4.8-10.8)
[2018-10-24 01:12] LABS: ANION GAP 4 (5-15); CALCIUM 9.2 mg/dL (8.4-11.0); CHLORIDE 95 mmol/L (98-107); CREATININE 2.36 mg/dL (0.55-1.30); SODIUM SERUM 129 mmol/L (136-145); UREA NITROGEN, BLOOD 56 mg/dL (8-21)
[2018-10-24 01:20] LABS: ALANINE AMINOTRANSFERASE 44 U/L (12-78); ALBUMIN 3.2 g/dL (3.4-4.8); ASPARTATE AMINOTRANSFERASE 33 U/L (10-37)
[2018-10-24] MEDS ORDERED: HYDR-3917 PO (01:20)
[2018-10-24 01:21] LABS: POTASSIUM 5.8 mmol/L (3.5-5.1)
[2018-10-24 01:22] LABS: GLUCOSE 816 mg/dL (70-99)
[2018-10-24] MEDS ORDERED: TEMA30CA5 PO (01:25)
[2018-10-24] MEDS ORDERED: INSULIN REGULAR, HUMAN 100 UNITS in NS 99 ML IV ONE ×2 (01:30)
[2018-10-24] MEDS ORDERED: INSULIN REGULAR, HUMAN 10 UNITS/0.1 ML INJ IVP ONE (01:30)
--- NOTE | 2018-10-24 01:46 | NUR ---
Medication reconciliation completed with information provided by [facility]. Any prior medication reconciliation on file was reviewed and corrected.
--- NOTE | 2018-10-24 02:15 | NUR ---
Pts daughter Oma left her phone number .
[2018-10-24] MEDS ORDERED: NACL 0.9% 1,000 ML IV SCH ×2 (03:45→05:00)
[2018-10-24] MEDS ORDERED: ENOXAPARIN SODIUM 60 MG/0.6 ML SYRINGE SUBCUT ONE ×2 (03:45→06:00)
--- NOTE | 2018-10-24 04:09 | NUR ---
ADMISSION NOTE Received patient from ER via denise, received report from AR BRIZUELA. Patient admitted with diagnosis of SYNCOPE. Patient oriented to hospital routine, call light, toileting and safety-patient verbalized understanding.
[2018-10-24 04:32] LABS: BILIRUBIN,URINE NEGATIVE (NEGATIVE); BLOOD, URINE 2+ (NEGATIVE); CLARITY/URINE CLEAR (CLEAR); COLOR,URINE YELLOW (YELLOW); GLUCOSE,URINE 3+ (NEGATIVE); KETONES,URINE NEGATIVE (NEGATIVE); LEUKOCYTE ESTERASE ,URINE NEGATIVE (NEGATIVE); NITRITE, URINE NEGATIVE (NEGATIVE); PROTEIN URINE TRACE (NEGATIVE); UROBILINOGEN,URINE 0.2 (0.2-1.0)
--- NOTE | 2018-10-24 04:34 | NUR ---
PAGING DR. JEFFERSON Paging Dr. Jefferosn for orders. Spoke with Roslyn from exchange. Will wait for to call back.
--- NOTE | 2018-10-24 04:39 | NUR ---
SPOKE TO DR. JEFFERSON WITH NEW ORDERS Received new orders from Dr. Jefferson. Will enter and carry out.
[2018-10-24] MEDS ORDERED: D5W 1,000 ML IV PRN (04:41)
[2018-10-24] MEDS ORDERED: DEXTROSE 50% JECT 50 ML DISP.SYRIN IVP PRN ×3 (04:45→07:45)
[2018-10-24] MEDS ORDERED: INSULIN REGULAR, HUMAN 100 UNITS in NS 99 ML IV SCH ×2 (04:45)
[2018-10-24] MEDS ORDERED: GLUCOSE 15 GM GEL (in 37.5 GM TUBE) PO PRN ×2 (04:45)
[2018-10-24 04:59] LABS: BACTERIA,URINE FEW /HPF (None Seen)
[2018-10-24] MEDS: NACL 0.9% 1,000 ML IV SCH ×6 (05:18→23:55)
--- NOTE | 2018-10-24 05:22 | NUR ---
DEVEN ZAMORANO RN DECREASED INSULIN DRIP FROM 8UNITS TO 4 UNITS /H PER ORDER.
--- NOTE | 2018-10-24 05:22 | NUR ---
INSULIN DRIP AT 4 UNITS/HR Regular insulin drip at 4 units/hr as ordered by Dr. Quan Witnessed with charge nurse, RA Jones.
[2018-10-24 05:38] LABS: BASOPHILS % (AUTO) 0.5 % (0.0-2.0); EOSINOPHILS # (AUTO) 0.1 K/uL (0.0-0.4); EOSINOPHILS % (AUTO) 1.4 % (0.0-4.0); HEMATOCRIT 41.2 % (36-54); LYMPHOCYTES # (AUTO) 1.2 K/uL (1.0-5.5); LYMPHOCYTES % (AUTO) 13.7 % (20.5-51.5); MEAN CORPUSCULAR HEMOGLOBIN 31 pg (27-31); MEAN CORPUSCULAR HGB CONC 32 % (32-36); MEAN CORPUSCULAR VOLUME 99 fL (79.0-98.0); MONOCYTES # (AUTO) 0.4 K/uL (0.0-1.0); MONOCYTES % (AUTO) 4.7 % (1.7-9.3); NEUTROPHILS # (AUTO) 6.8 K/uL (1.8-7.7); NEUTROPHILS % (AUTO) 79.7 % (40.0-70.0); PLATELET COUNT (AUTO) 154 K/uL (130-430); RED BLOOD CELL COUNT(AUTO) 4.16 MIL/uL (4.2-6.2); RED CELL DISTRIBUTION WIDTH 14.7 % (9.0-15.0); WHITE BLOOD COUNT (AUTO) 8.5 K/uL (4.8-10.8)
[2018-10-24 05:54] LABS: ANION GAP 9 (5-15); CHLORIDE 107 mmol/L (98-107); GLUCOSE 262 mg/dL (70-99); POTASSIUM 3.6 mmol/L (3.5-5.1); SODIUM SERUM 142 mmol/L (136-145)
[2018-10-24 05:55] LABS: CALCIUM 9.5 mg/dL (8.4-11.0); PHOSPHORUS 3.2 mg/dL (2.7-4.5); UREA NITROGEN, BLOOD 50 mg/dL (8-21)
--- NOTE | 2018-10-24 07:15 | NUR ---
REPORT HANDOFF All needs met throughout shift. Normal saline infusing at 500 mls/hr to right f/a 22g. Regular insulin drip infusing at 4 units/hr, bedside glucose 220. Endorsed 0730 accucheck to day shift nurse. Bedside report and care endorsed to AR Bonilla.
--- NOTE | 2018-10-24 07:25 | NUR ---
DR. JEFFERSON AT BEDSIDE Dr. Jefferson at bedside with new orders. Day shift nurse, AR Bonilla also present.
--- NOTE | 2018-10-24 07:30 | NUR ---
opening notes, pt in bed, pt is aaox1-2, denies pain, no sob, no resp distress. pt bs is now 174, pt on insulin drip at 4units/hr. iv fluids running at 500 cc/hr. iv access intact and patent. no s/s of infiltration on the iv site, pt is afebrile temp was 97.1. safety precaution in place , call light in reach. bed in locked and low position. bed alarm on. will cont to monitor.
[2018-10-24] MEDS ORDERED: INSULIN NPH 100 UNITS/ML 10 ML VIAL SUBCUT ONE (07:45)
--- NOTE | 2018-10-24 07:45 | NUR ---
dr bhakta was here and seen pt. new orders given and carried out.
--- NOTE | 2018-10-24 08:00 | NUR ---
Dr. Oneal aware of consult
--- NOTE | 2018-10-24 08:11 | NUR ---
Called Dr. Kumar with a consult, spoke with Aliyah from the exchange
[2018-10-24] MEDS ORDERED: NITROGLYCERIN 0.4 MG TAB.SUBL SL PRN (08:15)
[2018-10-24] MEDS: ASPIRIN 81 MG TABLET(ECOTRIN) PO SCH (08:59)
[2018-10-24] MEDS: ISOSORBIDE MONONITRATE 30 MG TAB.ER.24H PO SCH (08:59)
[2018-10-24] MEDS: ALLOPURINOL 100 MG TABLET (ZYLOPRIM) PO SCH ×2 (08:59→20:59)
[2018-10-24] MEDS: CLOPIDOGREL BISULFATE 75 MG TABLET PO SCH (08:59)
[2018-10-24] MEDS: NEPHROVITE, (FOLIC ACID/VITAMIN B COMP W-C 1 TAB) PO SCH (09:00)
[2018-10-24] MEDS: CYANOCOBALAMIN 1000 mCg TABLET PO SCH (09:00)
--- NOTE | 2018-10-24 09:15 | NUR ---
Notes: Informed MD Oneal about the EKG result.
--- NOTE | 2018-10-24 09:26 | NUR ---
paged dr bhakta to verify orders
--- NOTE | 2018-10-24 10:00 | NUR ---
dr bhakta here and order to dc insulin drip and change sliding scale verified. pt in bed, eyes closed. no s/s of pain, no resp distress. will cont to monitor.
--- NOTE | 2018-10-24 10:56 | NUR ---
BS = 1542, DONE EARLY DUE TO PT GOING TO [facility].
--- NOTE | 2018-10-24 11:30 | NUR ---
pt now in nm for perfusion scan with this rn. vitals are hr 92. 92% on 4 li per nc. rr is 21 and bp 125/58. continuing pt monitoring.
--- NOTE | 2018-10-24 13:00 | NUR ---
PT CAME BACK FROM [facility] ( VQ SCAN ), PT TOLERATED PROCEDURE WELL.
--- NOTE | 2018-10-24 15:10 | NUR ---
Notes: patient complained of headache.[facility] pain [facility] s/w avis awaited to callback. Addendum: 10/24/18 at 1514 by Parth Wayne RN Fantasma Quan.
--- NOTE | 2018-10-24 15:20 | NUR ---
Transfer from ICU Patient awake/alert oriented to himself Armenian speaking able to understand simple German with mild headache 3/10 vitals sign within normal limits , needs attended.
--- NOTE | 2018-10-24 15:28 | NUR ---
NOTES: MD JEFFERSON callback informed about the VQ scan. new order received.
[2018-10-24] MEDS ORDERED: ACETAMINOPHEN 650 MG/20.3 ML UDC PO PRN (15:30)
--- NOTE | 2018-10-24 15:30 | NUR ---
PT TRANSFERRED TO [facility], SBAR REPORT GIVEN TO AR TONY. PT IN STABLE CONDITION. INFORMED AR TONY ABOUT THE TYLENOL ORDER AND THE RESULT OF THE VQ SCAN RELAYED TO DR JEFFERSON.
[2018-10-24] MEDS: INSULIN REGULAR, HUMAN 100 UNITS/ML, 10 ML VIAL (novoLIN R) SUBCUT PRN ×2 (15:50→20:04)
[2018-10-24 16:24] LABS: ANION GAP 5 (5-15); CALCIUM 8.3 mg/dL (8.4-11.0); CHLORIDE 107 mmol/L (98-107); CREATININE 1.35 mg/dL (0.55-1.30); GLUCOSE 239 mg/dL (70-99); POTASSIUM 4.2 mmol/L (3.5-5.1); SODIUM SERUM 141 mmol/L (136-145); UREA NITROGEN, BLOOD 36 mg/dL (8-21)
--- NOTE | 2018-10-24 17:24 | NUR ---
Talat Oneal for elevated troponin ,denies any chest pain , telemetry NSR , will monitor. Addendum: 10/24/18 at 1733 by Armida Booker RN Dr. Joss das will continue to monitor.
--- NOTE | 2018-10-24 20:00 | NUR ---
INITIAL NOTES: HUNGARIAN SPEAKING. ORIENTED X3. VITAL SIGNS STABLE, CALL LIGHT WITHIN REACH .BED IN LOW POSITION FOR SAFETY. BLOOD SUGAR 181MG/DL. REGULAR 2 UNITS PER SLIDING SCALE GIVEN.
[2018-10-24] MEDS: DONEPEZIL HCL 5 MG TABLET (ARICEPT) PO SCH (20:58)
[2018-10-24] MEDS: ATORVASTATIN 20 MG TABLET PO SCH (20:59)
[2018-10-24] MEDS: ENOXAPARIN SODIUM 40 MG/0.4 ML SYRINGE SUBCUT SCH (21:00)
--- NOTE | 2018-10-24 21:00 | NUR ---
ALL DUE MEDS GIVEN. WITHOUT DIFFICULTY.
--- NOTE | 2018-10-24 22:05 | NUR ---
ASSISTED TO BSC TO MOVE BOWEL MOVEMENT. TOLERATED WELL.
--- NOTE | 2018-10-25 | NUR ---
RESTING WITH EYES CLOSE.BLOOD SUGAR 308MG /DL. COVERED WITH REGULAR INSULIN PER SLIDING SCALE.
[2018-10-25] MEDS: INSULIN REGULAR, HUMAN 100 UNITS/ML, 10 ML VIAL (novoLIN R) SUBCUT PRN ×5 (00:02→21:20)
--- NOTE | 2018-10-25 04:30 | NUR ---
BLOOD SUGAR. 226MG/DL, INSULIN GIVEN PER SUBCUT.
[2018-10-25] MEDS: NACL 0.9% 1,000 ML IV SCH ×2 (06:53→14:39)
--- NOTE | 2018-10-25 07:00 | NUR ---
CLOSING: ALL NEEDS WERE ATTENDED, NO ACUTE CARDIOPULMONARY DISTRESS . CALL LIGHT WITHIN REACH. BED ALARM ON WHOLE SHIFT.SINUS RHYTHM . CABRERA AND IV SITE PATENT.PATENT.
--- NOTE | 2018-10-25 07:59 | NUR ---
Nutrition Update Bentley Scale 16 noted. Pt admitted for syncope Diet: [facility] [place] diet BMI: 28.1 kg/m2 RD to follow per nutrition care standards.
[2018-10-25] MEDS: ALLOPURINOL 100 MG TABLET (ZYLOPRIM) PO SCH ×2 (08:42→21:10)
[2018-10-25] MEDS: NEPHROVITE, (FOLIC ACID/VITAMIN B COMP W-C 1 TAB) PO SCH (08:42)
[2018-10-25] MEDS: ASPIRIN 81 MG TABLET(ECOTRIN) PO SCH (08:42)
[2018-10-25] MEDS: ISOSORBIDE MONONITRATE 30 MG TAB.ER.24H PO SCH (08:45)
[2018-10-25 08:46] VITALS: BP_SYST 128
[2018-10-25 09:34] LABS: BASOPHILS # (AUTO) 0.1 K/uL (0.0-0.2); BASOPHILS % (AUTO) 1.2 % (0.0-2.0); EOSINOPHILS # (AUTO) 0.1 K/uL (0.0-0.4); EOSINOPHILS % (AUTO) 2.2 % (0.0-4.0); HEMATOCRIT 34.9 % (36-54); HEMOGLOBIN 11.4 g/dL (14.0-18.0); LYMPHOCYTES # (AUTO) 0.9 K/uL (1.0-5.5); LYMPHOCYTES % (AUTO) 14.4 % (20.5-51.5); MEAN CORPUSCULAR HEMOGLOBIN 33 pg (27-31); MEAN CORPUSCULAR HGB CONC 33 % (32-36); MEAN CORPUSCULAR VOLUME 101 fL (79.0-98.0); MONOCYTES # (AUTO) 0.3 K/uL (0.0-1.0); MONOCYTES % (AUTO) 5.1 % (1.7-9.3); NEUTROPHILS % (AUTO) 77.1 % (40.0-70.0); PLATELET COUNT (AUTO) 109 K/uL (130-430); RED BLOOD CELL COUNT(AUTO) 3.47 MIL/uL (4.2-6.2); RED CELL DISTRIBUTION WIDTH 14.9 % (9.0-15.0); WHITE BLOOD COUNT (AUTO) 6.4 K/uL (4.8-10.8)
[2018-10-25 10:38] LABS: POTASSIUM 3.7 mmol/L (3.5-5.1); SODIUM SERUM 136 mmol/L (136-145)
[2018-10-25 10:39] LABS: ANION GAP 7 (5-15); CALCIUM 8.3 mg/dL (8.4-11.0); CHLORIDE 108 mmol/L (98-107); CREATININE 1.02 mg/dL (0.55-1.30); GLUCOSE 259 mg/dL (70-99); UREA NITROGEN, BLOOD 24 mg/dL (8-21)
[2018-10-25 10:40] LABS: ALANINE AMINOTRANSFERASE 34 U/L (12-78); ALBUMIN 2.1 g/dL (3.4-4.8); ASPARTATE AMINOTRANSFERASE 35 U/L (10-37); THYROID STIMULATING HORMONE 0.26 uIu/mL (0.34-4.82); TOTAL BILIRUBIN 0.9 mg/dL (0.0-1.0)
[2018-10-25 11:03] LABS: FREE T4 (FREE THYROXINE) 0.7 ng/dL (0.6-1.6)
[2018-10-25] MEDS: CYANOCOBALAMIN 1000 mCg TABLET PO SCH (11:21)
[2018-10-25] MEDS: CLOPIDOGREL BISULFATE 75 MG TABLET PO SCH (11:21)
[2018-10-25 12:02] VITALS: BP_SYST 126
--- NOTE | 2018-10-25 15:05 | NUR ---
LAB CALLED TO REPORT PATIENT HAS MRSA OF THE NARES ISOLATED. AWARE.
[2018-10-25] MEDS ORDERED: MUPIROCIN NASAL 2% OINT. NS SCH (15:30)
[2018-10-25 16:02] VITALS: BP_SYST 143
[2018-10-25] MEDS ORDERED: REPAGLINIDE 1 MG TABLET (PRANDIN) PO SCH (17:00)
[2018-10-25] MEDS ORDERED: INSULIN NPH 100 UNITS/ML 10 ML VIAL SUBCUT ONE (17:00)
[2018-10-25 19:00] VITALS: BP_SYST 140
--- NOTE | 2018-10-25 19:15 | NUR ---
change of shift.pt.presents agitated affect;pt.stating he is to have a bm.pt.stating statement;arabic.pt.assisted upon the bedpan.pt.attempted to utilize the bsc but presents lower extremity weakness;cannot stand.pt.repositioned.post bm.iv fluids connected.nasal cannulae re-applied.call light/telephone placed w/in the pt's reach.
[2018-10-25 20:00] VITALS: BP_SYST 140
--- NOTE | 2018-10-25 20:05 | NUR ---
pt.has been transferred to room;112-bed-a.pt.presents:isolation;mrsa;nares.pt's primary language;nauruan:understands speaks;maori. pt.presents slight loc;confused.affect;restless.v/s assessed;values w/in normal limits;o2-sat%=96%@2l/min via nasal cannulae. iv fluids infusing.pt.repositioned.i have offer the pt.water drunk.seymour catheter assessed;patent urine content present.call light telephone placed w/in the pts reach.
--- NOTE | 2018-10-25 20:30 | NUR ---
blood glucose assessed;value;184mg/dl.
--- NOTE | 2018-10-25 21:00 | NUR ---
2100p medication administered.po capable to swallow medication whole.i have offered additional water pt.drunk. Addendum: 10/26/18 at 0546 by Teo Braun RN insulin:4-units regular,lovenox administered@this hour.
[2018-10-25] MEDS: MUPIROCIN 2% TOPICAL OINTMENT 22 GM NS SCH (21:08)
[2018-10-25] MEDS: ATORVASTATIN 20 MG TABLET PO SCH (21:09)
[2018-10-25] MEDS: DONEPEZIL HCL 5 MG TABLET (ARICEPT) PO SCH (21:09)
[2018-10-25] MEDS: TAMSULOSIN HCL 0.4 MG CAP PO SCH (21:09)
[2018-10-25] MEDS: ENOXAPARIN SODIUM 40 MG/0.4 ML SYRINGE SUBCUT SCH (21:18)
--- NOTE | 2018-10-25 22:49 | NUR ---
Paged Dr. Quan dialed [phone], s/w Elizabet.
[2018-10-26] VITALS: BP_SYST 158
--- NOTE | 2018-10-26 00:15 | NUR ---
pt.presents affect;restless. paged.dr bhakta had returned the pt.i apprised of the pt's status. has ordered ativan:0.5mg ivp q-6hrs;restless ness.i have administer the ativan.v/s assessed;values w/in normal; limits.pt.offered water;drunk.to f/u re:medication efficacy.iv fluids infusing.call light/telephone placed w/in the pt's reach.
[2018-10-26] MEDS: LORazepam 2 MG/ML VIAL IVP PRN ×2 (00:17→05:52)
--- NOTE | 2018-10-26 02:00 | NUR ---
pt.assessed.pt.presents quiescent affect;calm,somnolent.pt.repositioned.seymour catheter assessed;patent;urine content present. iv fluids infusing.general status stable.respiratory status stable.call light/telephone placed w/in the pt's reach.
--- NOTE | 2018-10-26 02:30 | NUR ---
pt.cleaned.pt.presents bm;
--- NOTE | 2018-10-26 03:00 | NUR ---
gumaro borjas;rn has re-established iv access;located rt.forearm.iv fluids re-connected.
--- NOTE | 2018-10-26 04:00 | NUR ---
pt.assessed.pt.presents quiescent affect;calm,somnolent.pt.repositioned.general status stable.respiratory status stable. o2 nasal cannulae re-applied upon the pt.seymour catheter assessed;patent:urine content present.iv fluids infusing. call light/telephone placed w/in the pt's reach.
--- NOTE | 2018-10-26 06:30 | NUR ---
pt.assessed.pt.presents affect;restless.i have administered ativan:0.5mg ivp.pt.repositioned.pt.offered water.water drunk. o2 therapy via nasal cannulae re-applied.seymour catheter assessed;patent:urine content present.iv fluids infusing. call light/telephone placed w/in the pt's reach.i have tuned the tv to programming. Addendum: 10/26/18 at 0841 by Teo Braun RN blood glucose assessed;value:106mg/dl. Addendum: 10/26/18 at 0842 by Teo Braun RN assessed blood glucose value;146mg/dl.106mg/dl incorrect.
--- NOTE | 2018-10-26 07:30 | NUR ---
OPENING NOTE Patient awake, no s/s of distress or discomfort at this time. Breathing even and unlabored, patient on room air and O2 sat of 95%. IV on right forearm patent and intact, NS running at 70 ml/hr and tolerating well. Fregoso cath in place, patent and intact, visible urine output. Safety, contact and fall precautions in place, bed is in lowest position and locked, bed alarm on, side rails up x2, call light within reach, will continue to monitor.
[2018-10-26 08:00] VITALS: BP_SYST 146
--- NOTE | 2018-10-26 10:05 | NUR ---
ROUNDS Pt resting quietly in bed with no s/s resp distress, no c/o pain or discomfort. Aspiration and safety precautions in place. Call light within reach.
[2018-10-26] MEDS: NEPHROVITE, (FOLIC ACID/VITAMIN B COMP W-C 1 TAB) PO SCH (10:25)
[2018-10-26] MEDS: ISOSORBIDE MONONITRATE 30 MG TAB.ER.24H PO SCH (10:25)
[2018-10-26] MEDS: CYANOCOBALAMIN 1000 mCg TABLET PO SCH (10:26)
[2018-10-26] MEDS: CLOPIDOGREL BISULFATE 75 MG TABLET PO SCH (10:26)
[2018-10-26] MEDS: TAMSULOSIN HCL 0.4 MG CAP PO SCH ×2 (10:26→21:23)
[2018-10-26] MEDS: ASPIRIN 81 MG TABLET(ECOTRIN) PO SCH (10:26)
[2018-10-26] MEDS: ALLOPURINOL 100 MG TABLET (ZYLOPRIM) PO SCH ×2 (10:26→21:23)
[2018-10-26] MEDS: MUPIROCIN 2% TOPICAL OINTMENT 22 GM NS SCH (10:29)
[2018-10-26] MEDS: NACL 0.9% 1,000 ML IV SCH (10:37)
[2018-10-26 11:19] VITALS: BP_SYST 152
[2018-10-26] MEDS: INSULIN REGULAR, HUMAN 100 UNITS/ML, 10 ML VIAL (novoLIN R) SUBCUT PRN (11:45)
--- NOTE | 2018-10-26 14:16 | NUR ---
CONSULTATION PAGED/CALLED Reason for Consultation: DM Person Who was Notified: SPOKE WITH WILLIAM FROM OFFICE . Consulting Physician: Electrophysiologist Specialty: ENDOCRINOLOGY Ordering Physician:
--- NOTE | 2018-10-26 14:37 | NUR ---
ROUNDS Patient is resting comfortably in bed, no s/s of acute distress. Breathing even and unlabored, patient on room air. IVF infusing at 50 ml/hr and tolerating well, no s/s of infection or infiltration on the IV site. F/C intact, visible urine output. Contact, safety, fall precautions in place, bed is in lowest position and locked, alarm on, side rails up x3, call light within reach, will continue to monitor.
--- NOTE | 2018-10-26 16:09 | NUR ---
DC Planning: [facility] [phone] informed GERMÁN Blanc about pt. is being discharged to SNF for PT, IV abx. DTR requested [facility] snf where he was before ( per dtr's request). CM faxed FS,H/P, dc order and progress note to fax# [phone] attn Jayashree and she will contact nursing unit for the discharge process. Todd will arrange snf and transportation. AR Barahona and AR Abdalla made aware.
[2018-10-26 16:39] VITALS: BP_SYST 147
[2018-10-26] MEDS ORDERED: INSULIN NPH 100 UNITS/ML 10 ML VIAL SUBCUT SCH (17:00)
[2018-10-26] MEDS ORDERED: INSULIN ASPART 100 UNITS/ML, 10 ML VIAL (NovoLOG) SUBCUT PRN (17:15)
--- NOTE | 2018-10-26 18:35 | NUR ---
CLOSING NOTE Patient resting with eyes closed but easily arousable, no s/s of acute distress. Patient on room air, breathing even and unlabored. IV site on RFA remains patent and intact. Safety, contact, and fall precautions observed throughout the shift, bed is in lowest position and locked, side rails up x2, call light within reach. All needs met throughout the shift, will endorse plan of care. Received a phone call from Todd Blanc, case management regarding bed availability at [facility] (bed 31B) .
--- NOTE | 2018-10-26 19:15 | NUR ---
OPENING NOTE RECEIVED ENDORSEMENT REPORT FROM DAY SHIFT NURSE JAVY AT BEDSIDE. PT IS AOX2, PT RESTING COMFORTABLY IN BED WITH EYES OPEN. CHEST RISE EVEN AND UNLABORED. NO SOB NOTED, NO DISTRESS NOTED. PT DENIES PAIN AT THIS TIME. NO S/S OF PAIN NOTED. PT HAS IV ON RIGHT FA 20 G. IV SITE CLEAN, DRY AND INTACT. IVF INFUSING WELL. FC EMPTYING TO GRAVITY, FC CLEAN, DRY AND INTACT. PT IS ON RA AND TOLERATING WELL. VITAL SIGNS WNL. NO NEEDS AT THIS TIME. ORIENTED PT TO HOSPITAL ROOM, PT VERBALIZED UNDERSTANDING. INSTRUCTED PT HOW TO USE ROOM PHONE AND CALL LIGHT, PT VERBALIZED UNDERSTANDING. PT EDUCATED ON SAFETY, INSTRUCTED PT TO USE CALL LIGHT TO CALL FOR ASSISTANCE. PT VERBALIZED UNDERSTANDING. 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 SAFETY MEASURES IN PLACE, CALL LIGHT/ROOM PHONE WITHIN REACH, BED IN LOWEST POSITION, BED RAILS UP X2, BED WHEELS LOCKED, BEDSIDE TABLE WITHIN REACH. NO OTHER NEEDS AT THIS TIME. WILL CONTINUE POC. PT TO BE TRANSFERRED TO [facility] IN [place], ETA OF AMBULANCE 2029. IF POTASSIUM ABOVE 3.2. PENDING LAB RESULTS.
--- NOTE | 2018-10-26 20:34 | NUR ---
CALLED PT'S DTR ELADIA ZARATE PT'S DTR ELADIA ZARATE CALLED TO BE NOTIFIED OF PT'S TRANSFER TO [facility]. PT'S DTR UPSET NO ONE HAD NOTIFIED HER OF PT'S TRANSFER. PT'S DTR STATED SHE HAD REQUESTED [facility] AND STATED SHE DID NOT WANT HER FATHER TO BE TRANSFERRED AT THIS TIME. NOTIFIED DTR NURSE WOULD CALL GERMÁN VINCENT FROM [facility] TO RELAY THE MESSAGE.
--- NOTE | 2018-10-26 20:42 | NUR ---
CALLED [facility]IL[facility] VINCENT NO ANSWER
--- NOTE | 2018-10-26 20:45 | NUR ---
[facility] ARRIVED
--- NOTE | 2018-10-26 20:49 | NUR ---
CALLED [facility] SPOKE TO MELISA, NOTIFIED GERMÁN VINCENT PT'S DTR DOES NOT WANT PT TO BE DISCHARGED TO [facility]. CM STATED [facility] HAD NO BEDS AVAILABLE. BED WAS SECURED AT [facility]. DTR IS ALLOWED TO APPEAL DISCHARGE BUT MAY BE LIABLE TO PAY OUT OF POCKET FOR HOSPITAL STAY SINCE BED WAS SECURED. CM WILL NOTIFY DTR
--- NOTE | 2018-10-26 20:55 | NUR ---
GERMÁN VINCENT RETURNED CALL [facility] GERMÁN VINCENT RETUNED CALL, INFORMED NURSE PT'S DTR WAS NOTIFIED OF PROCESS TO APPEAL TRANSFER. GERMÁN INFORMED PT'S DTR NO BED WAS AVAILABLE AT [facility] AND ONLY BED AVAILABLE WAS AT [facility]. UNDER THESE CIRCUMSTANCE SINCE BED WAS SECURED AND TRANSFER WAS ARRANGED IF DTR WANTED TO APPEAL TRANSFER AND KEEP PT IN HOSPITAL FAMILY WOULD HAVE TO COVER EXPENSES FOR HOSPITAL STAY. PT'S DTR RELUCTANTLY ACCEPTED TRANSFER. PT TO BE TRANSFERRED TO [facility] SCHEDULED.
--- NOTE | 2018-10-26 21:15 | NUR ---
HUGH MAYER CALLED FOR ENDORSMEENT REPORT ADRIANA MAYER CALLED AT [phone] TO GIVE REPORT TO FACILITY NURSE. SPOKE TO POLLO JOYNER, ENDORSED PT REPORT TO NURSE. RECEIVING PHYSICIAN DR. ENGLAND [phone]. PT'S RM 31B. PT IS AOX2, BERMUDIAN AND MACEDONIAN SPEAKING. 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 FC CLEAN,DRY AND INTACT.
[2018-10-26 21:22] VITALS: BP_SYST 140
[2018-10-26] MEDS: DONEPEZIL HCL 5 MG TABLET (ARICEPT) PO SCH (21:23)
[2018-10-26] MEDS: ATORVASTATIN 20 MG TABLET PO SCH (21:23)
[2018-10-26] MEDS: ENOXAPARIN SODIUM 40 MG/0.4 ML SYRINGE SUBCUT SCH (21:27)
--- NOTE | 2018-10-26 21:31 | NUR ---
RN ROUNDS PT RESTING COMFORTABLY IN BED WITH EYES OPEN. CHEST RISE EVEN AND UNLABORED. NO SOB NOTED, NO DISTRESS NOTED. PT DENIES PAIN AT THIS TIME. SCHEDULED MEDICATIONS ADMINISTERED ORDERED, PT TOLERATED WELL. SAFETY MEASURES IN PLACE, CALL LIGHT/ROOM PHONE WITHIN REACH, BED IN LOWEST POSITION, BED RAILS UP X2, BED WHEELS LOCKED, BEDSIDE TABLE WITHIN REACH. NO OTHER NEEDS AT THIS TIME. WILL CONTINUE POC.
--- NOTE | 2018-10-26 22:00 | NUR ---
RN ROUNDS PT RESTING COMFORTABLY IN BED WITH EYES OPEN. CHEST RISE EVEN AND UNLABORED. NO SOB NOTED, NO DISTRESS NOTED. PT DENIES PAIN AT THIS TIME. PT CHANGED INTO TRANSFER GOWN. PT'S BELONGINGS AT BEDSIDE WITH PT. PT INSTRUCTED ON TRANSFER INSTRUCTIONS. PT DID VERBALIZE UNDERSTANDING, PT SIGNED TRANSFER PACKET. IV CLEAN, DRY AND INTACT. NO OTHER NEEDS WILL ENDORSE PT REPORT TO [facility]. EMT PROVIDED WITH ORIGINAL TRANSFER PACKET.
--- NOTE | 2018-10-26 22:05 | NUR ---
ENDORSED PT REPORT TO [facility] EMT ELZA GRECO AT BEDSIDE
--- NOTE | 2018-10-26 22:07 | NUR ---
PT TRANSFERRED TO [facility]IA [facility] WITH [facility]. PT'S BELONGINGS WITH PT AT DEPARTURE. PT'S DTR NOTIFIED OF PT'S DEPARTURE @1624.
[2018-10-27] MEDS ORDERED: INSULIN NPH 100 UNITS/ML 10 ML VIAL SUBCUT SCH (07:00)
== END 2018-10-26 22:14 | DRG 682 ==
LOC: SED 23:32 → SIC 10-24 03:31 → STU 10-24 15:43 → SMU 10-25 19:08
PROVIDERS: ADMIT Internal Medicine; ATTEND Internal Medicine
DX: N17.0 Acute kidney failure with tubular necrosis (principal); J18.1 Lobar pneumonia, unspecified organism; G93.49 Other encephalopathy; E11.65 Type 2 diabetes mellitus with hyperglycemia; E11.22 Type 2 diabetes mellitus with diabetic chronic kidney disease; E11.40 Type 2 diabetes mellitus with diabetic neuropathy, unspecified; E78.5 Hyperlipidemia, unspecified; R29.6 Repeated falls; M19.90 Unspecified osteoarthritis, unspecified site; E87.8 Other disorders of electrolyte and fluid balance, not elsewhere classified; N40.0 Benign prostatic hyperplasia without lower urinary tract symptoms; D53.9 Nutritional anemia, unspecified; E87.5 Hyperkalemia; E86.0 Dehydration; I12.9 Hypertensive chronic kidney disease with stage 1 through stage 4 chronic kidney disease, or unspecified chronic kidney disease; E11.42 Type 2 diabetes mellitus with diabetic polyneuropathy; R27.0 Ataxia, unspecified; F03.90 Unspecified dementia, unspecified severity, without behavioral disturbance, psychotic disturbance, mood disturbance, and anxiety; G89.4 Chronic pain syndrome; I25.10 Atherosclerotic heart disease of native coronary artery without angina pectoris; M10.9 Gout, unspecified; N18.9 Chronic kidney disease, unspecified; Z79.4 Long term (current) use of insulin; Z79.82 Long term (current) use of aspirin; Z79.899 Other long term (current) drug therapy; Z95.1 Presence of aortocoronary bypass graft; Z86.73 Personal history of transient ischemic attack (TIA), and cerebral infarction without residual deficits; Z79.1 Long term (current) use of non-steroidal anti-inflammatories (NSAID)
CPT/HCPCS: 36415; 70450-TC; 71045; 76770; 78579; 78580-TC; 80048; 80053; 81000-TC; 82607; 82962; 83036; 83735-TC; 83880; 84100-TC; 84439; 84443-TC; 84484; 85025; 85379; 87081; 87086; 93005; 93306; 93880; 93970; 96361; 96374; 99285; A9539; A9540; J1650; J1815; J2060; J7030

== ENCOUNTER 2018-12-30 10:57 | Emergency (ER) | payer OTHER ==
[~2018-12-30] VITALS: Ht 154.9 cm; Wt 62.6 kg
[~2018-12-30 10:57] MED LIST changes: -FURO-150 PO; -GABA-531 PO; -GLIP2.5T3 PO; -GLU500 PO; -GLU850 PO; -HYDR-3606 PO; -NITSL SL; -POTA10TA15 PO; -TEMA15CA5 PO; -TIZA4TAB11 PO; -TRAM50TA92 PO; -TRAZ-123 PO; -[UNRECOGNIZED DRUG - CODE] TP
--- NOTE | 2018-12-30 11:04 | NUR ---
Patient to ER bed 8 to gown for evaluation. Side rails up. Assumed care.
--- NOTE | 2018-12-30 11:05 | NUR ---
Patient arrived via POV, AAOx2. Power of putty mixer, daughter at bedside. Patient was seen at PMD, blood sugar was >600. Patient was sent to ED for evaluation. Patient asymptomatic at this time, denies change in vision, increased urination, increased thirst, and lethargy. Patient denies abdominal pain, chest pain, shortness of breath, nausea, vomiting, or diarrhea. Patient calm and cooperative, resides at [facility], brought in by daughter. Will continue to follow up and monitor.
--- NOTE | 2018-12-30 11:06 | NUR ---
NAPOLEON Justin at bedside examining patient.
[2018-12-30 11:11] VITALS: BP_SYST 124
[2018-12-30] MEDS ORDERED: NACL 0.9% 1,000 ML IV ONE (11:15)
[2018-12-30] MEDS ORDERED: INSULIN REGULAR, HUMAN 10 UNITS/0.1 ML INJ IVP ONE (11:15)
[2018-12-30 11:26] LABS: BASOPHILS # (AUTO) 0.1 K/uL (0.0-0.2); BASOPHILS % (AUTO) 1.7 % (0.0-2.0); EOSINOPHILS # (AUTO) 0.2 K/uL (0.0-0.4); HEMATOCRIT 38.6 % (36-54); HEMOGLOBIN 12.8 g/dL (14.0-18.0); LYMPHOCYTES # (AUTO) 0.8 K/uL (1.0-5.5); LYMPHOCYTES % (AUTO) 22.1 % (20.5-51.5); MEAN CORPUSCULAR HEMOGLOBIN 32 pg (27-31); MEAN CORPUSCULAR HGB CONC 33 % (32-36); MEAN CORPUSCULAR VOLUME 95 fL (79.0-98.0); MONOCYTES # (AUTO) 0.3 K/uL (0.0-1.0); MONOCYTES % (AUTO) 8.4 % (1.7-9.3); NEUTROPHILS # (AUTO) 2.4 K/uL (1.8-7.7); NEUTROPHILS % (AUTO) 63.8 % (40.0-70.0); PLATELET COUNT (AUTO) 148 K/uL (130-430); RED BLOOD CELL COUNT(AUTO) 4.06 MIL/uL (4.2-6.2); RED CELL DISTRIBUTION WIDTH 14.3 % (9.0-15.0); WHITE BLOOD COUNT (AUTO) 3.8 K/uL (4.8-10.8)
--- NOTE | 2018-12-30 11:41 | NUR ---
Daughter informed of and understands plan of care . Pt given urinal to provide urine sample.
[2018-12-30 11:43] LABS: ANION GAP 5 (5-15); CALCIUM 8.8 mg/dL (8.4-11.0); CHLORIDE 100 mmol/L (98-107); POTASSIUM 4.7 mmol/L (3.5-5.1); SODIUM SERUM 134 mmol/L (136-145); UREA NITROGEN, BLOOD 27 mg/dL (8-21)
[2018-12-30 11:44] LABS: ALANINE AMINOTRANSFERASE 31 U/L (12-78); ALBUMIN 3.1 g/dL (3.4-4.8); ASPARTATE AMINOTRANSFERASE 27 U/L (10-37); TOTAL BILIRUBIN 0.5 mg/dL (0.0-1.0)
[2018-12-30 11:46] LABS: GLUCOSE 547 mg/dL (70-99)
--- NOTE | 2018-12-30 11:59 | NUR ---
Pt resting comfortably in bed with no signs of distress. Will continue to monitor.
--- NOTE | 2018-12-30 12:04 | NUR ---
Accucheck 436. Dr. Camacho notified. Orders to be received.
--- NOTE | 2018-12-30 12:13 | NUR ---
5 units Regular Insulin SQ administered to abdomen. Pt tolerated well. No adverse reactions noted. Will continue to monitor.
[2018-12-30] MEDS ORDERED: INSULIN REGULAR, HUMAN 10 UNITS/0.1 ML INJ SUBCUT ONE ×2 (12:15→13:00)
[2018-12-30 12:19] LABS: BILIRUBIN,URINE NEGATIVE (NEGATIVE); BLOOD, URINE 3+ (NEGATIVE); COLOR,URINE YELLOW (YELLOW); GLUCOSE,URINE 3+ (NEGATIVE); KETONES,URINE NEGATIVE (NEGATIVE); LEUKOCYTE ESTERASE ,URINE 1+ (NEGATIVE); NITRITE, URINE POSITIVE (NEGATIVE); PROTEIN URINE 1+ (NEGATIVE); UROBILINOGEN,URINE 0.2 (0.2-1.0)
[2018-12-30 12:21] LABS: CLARITY/URINE HAZY (CLEAR)
[2018-12-30 12:32] LABS: WBC,URINE 80-100 /HPF (0-3)
[2018-12-30 12:33] LABS: BACTERIA,URINE MANY /HPF (None Seen); MUCUS,URINE None Seen /LPF (None Seen)
[2018-12-30] MEDS ORDERED: cefTRIAXone 1 GM in LIDOCAINE 1%, 20 ML MDV 2.1 ML IM ONE (12:45)
--- NOTE | 2018-12-30 12:53 | NUR ---
repeat blood sugar is 304mg/dl.
--- NOTE | 2018-12-30 12:58 | NUR ---
Patient given SQ injection of insulin for treatment of 304mg/dl blood glucose. Patient given IM rocephin with lidocaine for treatment of UTI.
[2018-12-30 14:05] VITALS: BP_SYST 130
--- NOTE | 2018-12-30 14:05 | NUR ---
Patient given written and verbal discharge instructions and verbalizes understanding. ER MD discussed with patient the results and treatment provided. Patient in stable condition. ID arm band removed. IV catheter removed intact and dressing applied, no active bleeding. Rx of Cipro given. Patient educated on pain management and to follow up with PMD. Pain Scale 0/10. Opportunity for questions provided and answered. Medication side effect fact sheet provided. Education provided about high blood glucose levels and PO medication. It is necessary to follow up with primary care physician for further testing and may need different medication for management. Patients daughter states she will take the patient to lunch since we have given him insulin. Educated on cipro for discharge medication for treatment of UTI.
== END 2018-12-30 14:05 | disposition home or self-care (01) ==
LOC: SED 10:57
DX: E11.65 Type 2 diabetes mellitus with hyperglycemia (principal); N39.0 Urinary tract infection, site not specified; D64.9 Anemia, unspecified; E78.00 Pure hypercholesterolemia, unspecified; I10 Essential (primary) hypertension; M10.9 Gout, unspecified; Z90.49 Acquired absence of other specified parts of digestive tract; Z86.79 Personal history of other diseases of the circulatory system; Z79.82 Long term (current) use of aspirin; Z79.899 Other long term (current) drug therapy
CPT/HCPCS: 36415; 80053; 81000; 82962; 85025; 87086; 87186; 96361; 96372; 96374; 99283; J0696; J1815; J2001; J7030

== ENCOUNTER 2019-04-08 14:14 | Emergency (ER) | payer OTHER ==
[~2019-04-08] VITALS: Ht 160 cm; Wt 77.1 kg
[2019-04-08 14:15] VITALS: BP_SYST 140
--- NOTE | 2019-04-08 14:19 | NUR ---
Placed in room 1. Placed on potline monitor, blood pressure machine and pulse oximeter. To gown for exam. Side rails up. Report given to Ayana JOYNER.
--- NOTE | 2019-04-08 14:30 | NUR ---
Dilma dawson in ED - 04/08/19 at 1944 by [email or web address] Patient presented to with pain and swelling to bilat legs. Patient A&ox3, afebrile, respirations equal bilat, bilat swelling to legs, pain 02/07, denies N/V/D.
--- NOTE | 2019-04-08 14:30 | NUR ---
Patient presented to SOB and pain and swelling to bilat legs. Patient A&ox3, afebrile, respirations equal bilat, bilat swelling to legs, pain 3/10, nausea, denies V/D. Patient arrived via wheelchair with Daughter. Patient was at PMD appointment when refferred patient to ER.
--- NOTE | 2019-04-08 14:35 | NUR ---
ER Dr. Jacome at bedside examining patient.
[2019-04-08 14:54] LABS: BASOPHILS % (AUTO) 0.7 % (0.0-2.0); EOSINOPHILS # (AUTO) 0.3 K/uL (0.0-0.4); EOSINOPHILS % (AUTO) 6.1 % (0.0-4.0); HEMATOCRIT 36.8 % (36-54); HEMOGLOBIN 12.2 g/dL (14.0-18.0); MEAN CORPUSCULAR HEMOGLOBIN 31 pg (27-31); MEAN CORPUSCULAR HGB CONC 33 % (32-36); MEAN CORPUSCULAR VOLUME 93 fL (79.0-98.0); MONOCYTES # (AUTO) 0.6 K/uL (0.0-1.0); MONOCYTES % (AUTO) 13.2 % (1.7-9.3); NEUTROPHILS # (AUTO) 2.5 K/uL (1.8-7.7); PLATELET COUNT (AUTO) 155 K/uL (130-430); RED BLOOD CELL COUNT(AUTO) 3.94 MIL/uL (4.2-6.2); RED CELL DISTRIBUTION WIDTH 16.5 % (9.0-15.0); WHITE BLOOD COUNT (AUTO) 4.5 K/uL (4.8-10.8)
[2019-04-08 15:14] LABS: ANION GAP 3 (5-15); CHLORIDE 106 mmol/L (98-107); CREATININE 1.24 mg/dL (0.55-1.30); GLUCOSE 160 mg/dL (70-99); POTASSIUM 4.5 mmol/L (3.5-5.1); SODIUM SERUM 137 mmol/L (136-145); UREA NITROGEN, BLOOD 25 mg/dL (8-21)
[2019-04-08 15:19] LABS: ALANINE AMINOTRANSFERASE 26 U/L (12-78); ALBUMIN 2.9 g/dL (3.4-4.8); ASPARTATE AMINOTRANSFERASE 22 U/L (10-37); TOTAL BILIRUBIN 0.6 mg/dL (0.0-1.0)
[2019-04-08 15:25] LABS: PROTHROMBIN TIME 9.9 SECS (9.5-12.5)
[2019-04-08 15:37] LABS: BILIRUBIN,URINE NEGATIVE (NEGATIVE); BLOOD, URINE 1+ (NEGATIVE); CLARITY/URINE CLEAR (CLEAR); COLOR,URINE YELLOW (YELLOW); GLUCOSE,URINE 1+ (NEGATIVE); KETONES,URINE NEGATIVE (NEGATIVE); LEUKOCYTE ESTERASE ,URINE NEGATIVE (NEGATIVE); NITRITE, URINE NEGATIVE (NEGATIVE); PH,URINE 5.5 (5.0-8.0); PROTEIN URINE 3+ (NEGATIVE); UROBILINOGEN,URINE 0.2 (0.2-1.0)
[2019-04-08 15:46] LABS: BACTERIA,URINE FEW /HPF (None Seen); RBC,URINE 0-3 /HPF (0-3); WBC,URINE 0-3 /HPF (0-3)
[2019-04-08] MEDS ORDERED: ONDANSETRON HCL 4 MG/2 ML VIAL IVP ONE (16:30)
--- NOTE | 2019-04-08 16:33 | NUR ---
spoke to Todd Riley Process Mechanic, Dr. Quintero will page back for a doc to doc call. Requested we fax over facesheet and er reports to attn: Rosemary.
--- NOTE | 2019-04-08 17:59 | NUR ---
Skilled nurse Cherry given update IV/IV meds
--- NOTE | 2019-04-08 18:11 | NUR ---
Received call from Todd Riley. Transport ETA 193. [facility] ambulance. [place] room 142. Report [phone].
[2019-04-08 19:45] VITALS: BP_SYST 114
--- NOTE | 2019-04-08 19:45 | NUR ---
Patient to be transferred to [place]. Is being transferred due to higher level of care. Receiving facility has accepting physician and available space. ER physician has signed transfer form. Patient or responsible green party has agreed to transfer and signed form. Patient belongings inventoried and will be sent with patient. Copy of nursing notes, lab reports, EKG, Physicians Orders and X-rays to be sent with patient. Report called to AR Richards at receiving facility. Receiving physician is Dr. Green. Pt leaves in c/o [facility] via stretcher in stable condition.
== END 2019-04-08 19:45 ==
LOC: SED 14:14
DX: I11.0 Hypertensive heart disease with heart failure (principal); I50.9 Heart failure, unspecified; J18.9 Pneumonia, unspecified organism; E11.9 Type 2 diabetes mellitus without complications; E78.00 Pure hypercholesterolemia, unspecified; Z79.82 Long term (current) use of aspirin; Z79.899 Other long term (current) drug therapy
CPT/HCPCS: 36415; 71045; 80053; 81000; 83605; 83880; 84484; 85025; 85610; 85730; 87040; 87086; 93005; 96374; 99284; J2405

== ENCOUNTER 2019-04-26 16:41 | Emergency (ER) | payer OTHER ==
[~2019-04-26] VITALS: Ht 160 cm; Wt 72.6 kg
[2019-04-26 16:47] VITALS: BP_SYST 135
--- NOTE | 2019-04-26 17:03 | NUR ---
PT AAOx4 from [facility] c/o 09/09 L ankle pain and fever s/p fall prior to arrival. Pt states he doesn't remember the event. Denies CP/N/V/D. No other injuries/complaints per pt/noted. Daughter at bedside. Will continue to monitor.
--- NOTE | 2019-04-26 17:05 | NUR ---
Placed in room 08 . Placed on quality assurance monitor body, blood pressure machine and pulse oximeter. To gown for exam. Side rails up.
--- NOTE | 2019-04-26 17:05 | NUR ---
ER Dr. Little at bedside examining patient.
--- NOTE | 2019-04-26 17:07 | NUR ---
EKG done at bedside.
--- NOTE | 2019-04-26 17:21 | NUR ---
Lab at bedside for blood draw.
--- NOTE | 2019-04-26 17:23 | NUR ---
Urinal provided for urine sample
[2019-04-26 17:35] LABS: BASOPHILS % (AUTO) 0.3 % (0.0-2.0); EOSINOPHILS # (AUTO) 0.1 K/uL (0.0-0.4); EOSINOPHILS % (AUTO) 1.4 % (0.0-4.0); HEMATOCRIT 36.9 % (36-54); HEMOGLOBIN 12.1 g/dL (14.0-18.0); LYMPHOCYTES # (AUTO) 0.8 K/uL (1.0-5.5); LYMPHOCYTES % (AUTO) 9.2 % (20.5-51.5); MEAN CORPUSCULAR HEMOGLOBIN 31 pg (27-31); MEAN CORPUSCULAR HGB CONC 33 % (32-36); MEAN CORPUSCULAR VOLUME 94 fL (79.0-98.0); MONOCYTES # (AUTO) 0.5 K/uL (0.0-1.0); MONOCYTES % (AUTO) 6.1 % (1.7-9.3); NEUTROPHILS # (AUTO) 7.4 K/uL (1.8-7.7); PLATELET COUNT (AUTO) 143 K/uL (130-430); RED BLOOD CELL COUNT(AUTO) 3.94 MIL/uL (4.2-6.2); RED CELL DISTRIBUTION WIDTH 16.3 % (9.0-15.0)
--- NOTE | 2019-04-26 17:44 | NUR ---
Pt attempted to use urinal. Unable to urinate at this time. Water provided. Pt states he will try again in a few minutes.
[2019-04-26 17:48] LABS: ANION GAP 6 (5-15); CALCIUM 9.4 mg/dL (8.4-11.0); CHLORIDE 105 mmol/L (98-107); CREATININE 1.59 mg/dL (0.55-1.30); GLUCOSE 193 mg/dL (70-99); POTASSIUM 5.2 mmol/L (3.5-5.1); SODIUM SERUM 140 mmol/L (136-145); UREA NITROGEN, BLOOD 38 mg/dL (8-21)
[2019-04-26 17:56] LABS: ALANINE AMINOTRANSFERASE 28 U/L (12-78); ALBUMIN 2.8 g/dL (3.4-4.8); ASPARTATE AMINOTRANSFERASE 30 U/L (10-37); TOTAL BILIRUBIN 0.4 mg/dL (0.0-1.0)
[2019-04-26] MEDS ORDERED: CAPS60CR4 TP (18:06)
[2019-04-26] MEDS ORDERED: HYDR-3917 PO (18:06)
[2019-04-26] MEDS ORDERED: METF-509 PO (18:06)
[2019-04-26] MEDS ORDERED: GABA-531 PO (18:06)
[2019-04-26] MEDS ORDERED: TIZA4TAB11 PO (18:06)
[2019-04-26] MEDS ORDERED: OXYB10TA4 PO (18:06)
[2019-04-26] MEDS ORDERED: LIDOINT TP (18:06)
[2019-04-26] MEDS ORDERED: SSREG SUBCUT (18:06)
[2019-04-26] MEDS ORDERED: CICL90CR10 TP (18:06)
[2019-04-26] MEDS ORDERED: TEMA15CA5 PO (18:06)
[2019-04-26] MEDS ORDERED: SSNPH SQ (18:06)
[2019-04-26] MEDS ORDERED: MYCOLOG30 TP (18:06)
[2019-04-26] MEDS ORDERED: ACET325S17 PO (18:06)
[2019-04-26] MEDS ORDERED: DICL100G19 TP (18:06)
--- NOTE | 2019-04-26 18:08 | NUR ---
Pt taken to radiology via gurney in stable condition
[2019-04-26 18:17] LABS: BILIRUBIN,URINE NEGATIVE (NEGATIVE); BLOOD, URINE 2+ (NEGATIVE); CLARITY/URINE CLEAR (CLEAR); COLOR,URINE YELLOW (YELLOW); GLUCOSE,URINE 1+ (NEGATIVE); KETONES,URINE NEGATIVE (NEGATIVE); LEUKOCYTE ESTERASE ,URINE NEGATIVE (NEGATIVE); NITRITE, URINE NEGATIVE (NEGATIVE); PH,URINE 5.5 (5.0-8.0); PROTEIN URINE 3+ (NEGATIVE); UROBILINOGEN,URINE 0.2 (0.2-1.0)
[2019-04-26 18:22] LABS: BACTERIA,URINE FEW /HPF (None Seen); RBC,URINE 0-3 /HPF (0-3); WBC,URINE 0-3 /HPF (0-3)
--- NOTE | 2019-04-26 19:21 | NUR ---
Patient given written and verbal discharge instructions and verbalizes understanding. ER MD Little discussed with patient the results and treatment provided. Patient in stable condition. ID arm band removed. IV catheter removed intact and dressing applied, no active bleeding. No Rx given. Patient educated on pain management and to follow up with PMD. Pain Scale 0. Opportunity for questions provided and answered. Medication side effect fact sheet provided.
[2019-04-26 19:22] VITALS: BP_SYST 129
== END 2019-04-26 19:22 | disposition home or self-care (01) ==
LOC: SED 16:41
DX: B34.9 Viral infection, unspecified (principal); E78.00 Pure hypercholesterolemia, unspecified; I12.9 Hypertensive chronic kidney disease with stage 1 through stage 4 chronic kidney disease, or unspecified chronic kidney disease; E11.22 Type 2 diabetes mellitus with diabetic chronic kidney disease; N18.9 Chronic kidney disease, unspecified; Z90.49 Acquired absence of other specified parts of digestive tract; Z86.79 Personal history of other diseases of the circulatory system; Z79.82 Long term (current) use of aspirin; Z79.899 Other long term (current) drug therapy; W01.0XXA Fall on same level from slipping, tripping and stumbling without subsequent striking against object, initial encounter; Y93.89 Activity, other specified; Y92.89 Other specified places as the place of occurrence of the external cause; Y99.8 Other external cause status
CPT/HCPCS: 36415; 70450-TC; 71045; 80053; 81000-TC; 84484; 85025; 93005; 99284

== ENCOUNTER 2019-07-02 09:44 | Inpatient (IN) | payer OTHER ==
[~2019-07-02] VITALS: Ht 160 cm; Wt 78.0 kg
[2019-07-02] VITALS (12 sets, daily range): BP systolic 71–105
[~2019-07-02 09:44] MED LIST changes: +ACET325S17 PO; +CAPS60CR4 TP; +CICL90CR10 TP; +DICL100G19 TP; +GABA-531 PO; +HYDR-3917 PO; +LIDOINT TP; +METF-509 PO; +MYCOLOG30 TP; +OXYB10TA4 PO; +SSNPH SQ; +SSREG SUBCUT; +TEMA15CA5 PO; +TIZA4TAB11 PO
[2019-07-02] MEDS ORDERED: NACL 0.9% 1,000 ML IV ONE ×3 (10:15→13:15)
[2019-07-02 12:16] LABS: BASOPHILS % (AUTO) 0.3 % (0.0-2.0); HEMATOCRIT 34.3 % (36-54); HEMOGLOBIN 10.9 g/dL (14.0-18.0); LYMPHOCYTES # (AUTO) 0.5 K/uL (1.0-5.5); LYMPHOCYTES % (AUTO) 7.4 % (20.5-51.5); MEAN CORPUSCULAR HEMOGLOBIN 32 pg (27-31); MEAN CORPUSCULAR HGB CONC 32 % (32-36); MEAN CORPUSCULAR VOLUME 99 fL (79.0-98.0); MONOCYTES # (AUTO) 0.4 K/uL (0.0-1.0); MONOCYTES % (AUTO) 5.3 % (1.7-9.3); PLATELET COUNT (AUTO) 143 K/uL (130-430); RED BLOOD CELL COUNT(AUTO) 3.45 MIL/uL (4.2-6.2); WHITE BLOOD COUNT (AUTO) 6.9 K/uL (4.8-10.8)
[2019-07-02] MEDS ORDERED: FURO80TA3 PO (12:49)
[2019-07-02] MEDS ORDERED: LISI-209 PO (12:49)
[2019-07-02] MEDS ORDERED: NOVOLIN NPH SUBCUT (12:49)
[2019-07-02] MEDS ORDERED: INSU100V7 IJ (12:49)
[2019-07-02] MEDS ORDERED: POTA20TA83 PO (12:49)
[2019-07-02] MEDS ORDERED: HUMULIN N SUBCUT (12:49)
[2019-07-02] MEDS ORDERED: ACET167L15 PO (12:49)
[2019-07-02 13:05] LABS: ALANINE AMINOTRANSFERASE 61 U/L (12-78); ALBUMIN 3.1 g/dL (3.4-4.8); ANION GAP 17 (5-15); ASPARTATE AMINOTRANSFERASE 52 U/L (10-37); CHLORIDE 102 mmol/L (98-107); CREATININE 7.36 mg/dL (0.55-1.30); GLUCOSE 254 mg/dL (70-99); SODIUM SERUM 128 mmol/L (136-145); TOTAL BILIRUBIN 0.5 mg/dL (0.0-1.0)
[2019-07-02 13:06] LABS: POTASSIUM 8.8 mmol/L (3.5-5.1)
[2019-07-02 13:07] LABS: UREA NITROGEN, BLOOD 215 mg/dL (8-21)
[2019-07-02 13:08] LABS: ALCOHOL, BLOOD < 3 mg/dL (<10)
[2019-07-02 13:09] LABS: ACETAMINOPHEN < 1 ug/mL (1-30); DIGOXIN < 0.1 ng/mL (0.80-2.00)
[2019-07-02] MEDS ORDERED: INSULIN REGULAR, HUMAN 10 UNITS/0.1 ML INJ IVP ONE (13:15)
[2019-07-02] MEDS ORDERED: DEXTROSE 50% JECT 50 ML DISP.SYRIN IVP ONE (13:15)
[2019-07-02] MEDS ORDERED: SODIUM BICARBONATE 8.4% JECT 50 MEQ/50 ML SYRINGE IVP ONE (13:15)
[2019-07-02] MEDS ORDERED: SODIUM POLYSTYRENE SULFONATE 15 GM/60 ML UDBTL PO ONE (13:15)
[2019-07-02] MEDS ORDERED: CALCIUM CHLORIDE 1 GM/10 ML DISP.SYRIN (14 mEq Ca++/SYR) IVP ONE (13:15)
[2019-07-02 13:18] LABS: ANION GAP 16 (5-15); CALCIUM 8.3 mg/dL (8.4-11.0); CHLORIDE 102 mmol/L (98-107); GLUCOSE 255 mg/dL (70-99); SODIUM SERUM 127 mmol/L (136-145)
[2019-07-02 13:20] LABS: ALANINE AMINOTRANSFERASE 72 U/L (12-78); ALBUMIN 2.8 g/dL (3.4-4.8); ASPARTATE AMINOTRANSFERASE 64 U/L (10-37); TOTAL BILIRUBIN 0.5 mg/dL (0.0-1.0)
[2019-07-02 13:32] LABS: CKMB RELATIVE INDEX 4.5 (0.0-2.9); CREATINE KINASE MB 26.2 ng/mL (0-3.6)
[2019-07-02 13:35] LABS: POTASSIUM 8.8 mmol/L (3.5-5.1); UREA NITROGEN, BLOOD 210 mg/dL (8-21)
[2019-07-02 13:36] LABS: CREATININE 7.53 mg/dL (0.55-1.30)
[2019-07-02] MEDS ORDERED: D5/0.45 NS 1,000 ML IV ONE (14:15)
[2019-07-02] MEDS ORDERED: SODIUM POLYSTYRENE SULFONATE 15 GM/60 ML UDBTL RC ONE (15:45)
[2019-07-02] MEDS ORDERED: ZOSTRIX 0.025% CR TP PRN (16:00)
[2019-07-02] MEDS ORDERED: LIDOCAINE TOPICAL OINT 5%, 35 GM TP PRN (16:00)
[2019-07-02] MEDS ORDERED: HEPARIN SODIUM, PORCINE 10,000 UNITS/ 10 ML VIAL MC ONE (16:15)
[2019-07-02] MEDS: NOREPINEPHRINE BITARTRATE 4 MG in NS 246 ML IV PRN ×2 (16:37→21:25)
[2019-07-02] MEDS ORDERED: HEPARIN SODIUM,PORCINE 5000 UNITS/ML VIAL SUBCUT ONE (16:45)
[2019-07-02] MEDS: INSULIN REGULAR, HUMAN 100 UNITS/ML, 10 ML VIAL (humuLIN R) SUBCUT PRN ×2 (18:11→21:54)
[2019-07-02] MEDS: LevALBUTEROL HCL 1.25 MG/0.5 ML *CONC.* VIAL.NEB (XOPENEX CONC.) INH SCH (20:20)
[2019-07-02] MEDS: DONEPEZIL HCL 5 MG TABLET (ARICEPT) PO SCH (21:50)
[2019-07-02] MEDS: tiZANidine HCL 4 MG TABLET PO SCH (21:50)
[2019-07-02] MEDS: GABAPENTIN 300 MG CAPSULE PO SCH (21:51)
[2019-07-02] MEDS: D5/0.45 NS 1,000 ML IV SCH (21:52)
[2019-07-02] MEDS ORDERED: HEPARIN SODIUM,PORCINE 5000 UNITS/ML VIAL ONE (22:14)
[2019-07-02] MEDS ORDERED: CARVEDILOL 6.25 MG TABLET (COREG) PO SCH (23:00)
[2019-07-03] VITALS (23 sets, daily range): BP systolic 89–145
[2019-07-03] MEDS: LevALBUTEROL HCL 1.25 MG/0.5 ML *CONC.* VIAL.NEB (XOPENEX CONC.) INH SCH ×4 (01:36→18:59)
[2019-07-03] MEDS: CARVEDILOL 6.25 MG TABLET (COREG) PO SCH ×3 (08:18→21:07)
[2019-07-03] MEDS: OXYBUTYNIN CHLORIDE 5 MG TABLET PO SCH ×3 (08:19→21:07)
[2019-07-03] MEDS: ISOSORBIDE MONONITRATE 30 MG TAB.ER.24H PO SCH (08:19)
[2019-07-03] MEDS: CLOPIDOGREL BISULFATE 75 MG TABLET PO SCH (08:19)
[2019-07-03] MEDS: GABAPENTIN 300 MG CAPSULE PO SCH ×4 (08:19→21:07)
[2019-07-03] MEDS: TRIAMCIN TP SCH (09:00)
[2019-07-03] MEDS: NYSTATIN TP SCH (09:00)
[2019-07-03 10:48] LABS: BASOPHILS % (AUTO) 0.2 % (0.0-2.0); EOSINOPHILS % (AUTO) 0.4 % (0.0-4.0); HEMATOCRIT 29.7 % (36-54); LYMPHOCYTES # (AUTO) 0.9 K/uL (1.0-5.5); LYMPHOCYTES % (AUTO) 20.2 % (20.5-51.5); MEAN CORPUSCULAR HEMOGLOBIN 32 pg (27-31); MEAN CORPUSCULAR HGB CONC 34 % (32-36); MEAN CORPUSCULAR VOLUME 95 fL (79.0-98.0); MONOCYTES # (AUTO) 0.5 K/uL (0.0-1.0); MONOCYTES % (AUTO) 10.3 % (1.7-9.3); NEUTROPHILS # (AUTO) 3.1 K/uL (1.8-7.7); NEUTROPHILS % (AUTO) 68.9 % (40.0-70.0); PLATELET COUNT (AUTO) 107 K/uL (130-430); RED BLOOD CELL COUNT(AUTO) 3.12 MIL/uL (4.2-6.2); RED CELL DISTRIBUTION WIDTH 16.7 % (9.0-15.0); WHITE BLOOD COUNT (AUTO) 4.5 K/uL (4.8-10.8)
[2019-07-03 11:01] LABS: ANION GAP 12 (5-15); CALCIUM 8.4 mg/dL (8.4-11.0); CHLORIDE 107 mmol/L (98-107); CREATININE 4.15 mg/dL (0.55-1.30); GLUCOSE 166 mg/dL (70-99); POTASSIUM 4.6 mmol/L (3.5-5.1); SODIUM SERUM 141 mmol/L (136-145)
[2019-07-03 11:06] LABS: ALANINE AMINOTRANSFERASE 85 U/L (12-78); ALBUMIN 2.6 g/dL (3.4-4.8); ASPARTATE AMINOTRANSFERASE 59 U/L (10-37); TOTAL BILIRUBIN 0.8 mg/dL (0.0-1.0)
[2019-07-03 11:16] LABS: UREA NITROGEN, BLOOD 108 mg/dL (8-21)
[2019-07-03] MEDS: D5/0.45 NS 1,000 ML IV SCH ×2 (12:00→21:09)
[2019-07-03] MEDS ORDERED: HEPARIN SODIUM,PORCINE 5000 UNITS/ML VIAL SUBCUT ONE (12:45)
[2019-07-03] MEDS: NOREPINEPHRINE BITARTRATE 4 MG in NS 246 ML IV PRN (18:36)
[2019-07-03] MEDS: INSULIN REGULAR, HUMAN 100 UNITS/ML, 10 ML VIAL (humuLIN R) SUBCUT PRN (18:38)
[2019-07-03] MEDS: DONEPEZIL HCL 5 MG TABLET (ARICEPT) PO SCH ×2 (21:00→21:06)
[2019-07-03] MEDS: tiZANidine HCL 4 MG TABLET PO SCH ×2 (21:00→21:06)
[2019-07-04] VITALS (16 sets, daily range): BP systolic 104–151
[2019-07-04] MEDS: LevALBUTEROL HCL 1.25 MG/0.5 ML *CONC.* VIAL.NEB (XOPENEX CONC.) INH SCH ×4 (01:00→19:00)
[2019-07-04] MEDS: INSULIN REGULAR, HUMAN 100 UNITS/ML, 10 ML VIAL (humuLIN R) SUBCUT PRN ×3 (06:28→21:17)
[2019-07-04 06:38] LABS: HEMATOCRIT 28.7 % (36-54); HEMOGLOBIN 9.7 g/dL (14.0-18.0); MEAN CORPUSCULAR HEMOGLOBIN 32 pg (27-31); MEAN CORPUSCULAR HGB CONC 34 % (32-36); MEAN CORPUSCULAR VOLUME 95 fL (79.0-98.0); PLATELET COUNT (AUTO) 100 K/uL (130-430); RED BLOOD CELL COUNT(AUTO) 3.02 MIL/uL (4.2-6.2); RED CELL DISTRIBUTION WIDTH 16.6 % (9.0-15.0); WHITE BLOOD COUNT (AUTO) 4.1 K/uL (4.8-10.8)
[2019-07-04] MEDS: D5/0.45 NS 1,000 ML IV SCH ×2 (06:46→18:15)
[2019-07-04 07:02] LABS: ANION GAP 6 (5-15); CALCIUM 8.5 mg/dL (8.4-11.0); CHLORIDE 107 mmol/L (98-107); CREATININE 1.83 mg/dL (0.55-1.30); GLUCOSE 192 mg/dL (70-99); POTASSIUM 3.9 mmol/L (3.5-5.1); SODIUM SERUM 137 mmol/L (136-145); UREA NITROGEN, BLOOD 43 mg/dL (8-21)
[2019-07-04 09:32] LABS: BASOPHILS % (MANUAL) 0 % (0-2); EOSINOPHILS % (MANUAL) 4 % (0-7); LYMPHOCYTES % (MANUAL) 21 % (20-46); MONOCYTES % (MANUAL) 7 % (0-11)
[2019-07-04] MEDS: OXYBUTYNIN CHLORIDE 5 MG TABLET PO SCH ×2 (09:51→21:00)
[2019-07-04] MEDS: CARVEDILOL 6.25 MG TABLET (COREG) PO SCH ×2 (09:51→21:00)
[2019-07-04] MEDS: MUPIROCIN 2% TOPICAL OINTMENT 22 GM NS SCH ×2 (09:52→21:02)
[2019-07-04] MEDS: CLOPIDOGREL BISULFATE 75 MG TABLET PO SCH (09:52)
[2019-07-04] MEDS: NYSTATIN TP SCH (09:52)
[2019-07-04] MEDS: TRIAMCIN TP SCH (09:52)
[2019-07-04] MEDS: GABAPENTIN 300 MG CAPSULE PO SCH ×3 (09:52→20:59)
[2019-07-04] MEDS: ISOSORBIDE MONONITRATE 30 MG TAB.ER.24H PO SCH (09:52)
[2019-07-04] MEDS: DONEPEZIL HCL 5 MG TABLET (ARICEPT) PO SCH (20:59)
[2019-07-04] MEDS: tiZANidine HCL 4 MG TABLET PO SCH (21:00)
[2019-07-05 00:30] VITALS: BP_SYST 126
[2019-07-05] MEDS: LevALBUTEROL HCL 1.25 MG/0.5 ML *CONC.* VIAL.NEB (XOPENEX CONC.) INH SCH ×4 (01:00→19:00)
[2019-07-05] MEDS: D5/0.45 NS 1,000 ML IV SCH ×2 (05:10→15:40)
[2019-07-05] MEDS: INSULIN REGULAR, HUMAN 100 UNITS/ML, 10 ML VIAL (humuLIN R) SUBCUT PRN ×3 (07:00→17:05)
[2019-07-05 07:39] LABS: ANION GAP 5 (5-15); CHLORIDE 108 mmol/L (98-107); CREATININE 1.46 mg/dL (0.55-1.30); GLUCOSE 166 mg/dL (70-99); POTASSIUM 3.8 mmol/L (3.5-5.1); SODIUM SERUM 141 mmol/L (136-145); UREA NITROGEN, BLOOD 30 mg/dL (8-21)
[2019-07-05 07:45] LABS: BASOPHILS % (AUTO) 0.5 % (0.0-2.0); EOSINOPHILS # (AUTO) 0.1 K/uL (0.0-0.4); EOSINOPHILS % (AUTO) 3.5 % (0.0-4.0); HEMATOCRIT 27.9 % (36-54); HEMOGLOBIN 9.3 g/dL (14.0-18.0); LYMPHOCYTES # (AUTO) 0.9 K/uL (1.0-5.5); LYMPHOCYTES % (AUTO) 21.8 % (20.5-51.5); MEAN CORPUSCULAR HEMOGLOBIN 32 pg (27-31); MEAN CORPUSCULAR HGB CONC 33 % (32-36); MEAN CORPUSCULAR VOLUME 96 fL (79.0-98.0); MONOCYTES # (AUTO) 0.5 K/uL (0.0-1.0); MONOCYTES % (AUTO) 11.6 % (1.7-9.3); NEUTROPHILS # (AUTO) 2.5 K/uL (1.8-7.7); NEUTROPHILS % (AUTO) 62.6 % (40.0-70.0); RED BLOOD CELL COUNT(AUTO) 2.92 MIL/uL (4.2-6.2); RED CELL DISTRIBUTION WIDTH 16.2 % (9.0-15.0)
[2019-07-05 08:00] VITALS: BP_SYST 133
[2019-07-05] MEDS: CARVEDILOL 6.25 MG TABLET (COREG) PO SCH ×2 (08:25→21:07)
[2019-07-05] MEDS: GABAPENTIN 300 MG CAPSULE PO SCH ×3 (08:25→21:07)
[2019-07-05] MEDS: CLOPIDOGREL BISULFATE 75 MG TABLET PO SCH (08:25)
[2019-07-05] MEDS: OXYBUTYNIN CHLORIDE 5 MG TABLET PO SCH ×2 (08:26→21:07)
[2019-07-05] MEDS: ISOSORBIDE MONONITRATE 30 MG TAB.ER.24H PO SCH (08:26)
[2019-07-05] MEDS: MUPIROCIN 2% TOPICAL OINTMENT 22 GM NS SCH ×2 (08:28→21:07)
[2019-07-05] MEDS: NYSTATIN TP SCH (10:17)
[2019-07-05] MEDS: TRIAMCIN TP SCH (10:17)
[2019-07-05 11:48] LABS: PLATELET COUNT (AUTO) 78 K/uL (130-430)
[2019-07-05 12:00] VITALS: BP_SYST 125
[2019-07-05 12:06] LABS: HEPATITIS A AB, IgM Negative (Negative); HEPATITIS B CORE AB, IgM Negative (Negative); HEPATITIS B SURFACE AG Negative (Negative)
[2019-07-05 16:59] VITALS: BP_SYST 135
[2019-07-05] MEDS ORDERED: traMADol HCL HCL 50 MG TABLET (ULTRAM) PO SCH (17:30)
[2019-07-05] MEDS: traMADol HCL HCL 50 MG TABLET (ULTRAM) PO SCH (18:31)
[2019-07-05 20:30] VITALS: BP_SYST 132
[2019-07-05] MEDS: tiZANidine HCL 4 MG TABLET PO SCH (21:06)
[2019-07-05] MEDS: DONEPEZIL HCL 5 MG TABLET (ARICEPT) PO SCH (21:06)
[2019-07-06] MEDS: D5/0.45 NS 1,000 ML IV SCH ×2 (00:02→09:07)
[2019-07-06] MEDS: traMADol HCL HCL 50 MG TABLET (ULTRAM) PO SCH ×4 (00:03→17:17)
[2019-07-06 00:15] VITALS: BP_SYST 128
[2019-07-06] MEDS: INSULIN REGULAR, HUMAN 100 UNITS/ML, 10 ML VIAL (humuLIN R) SUBCUT PRN ×3 (06:44→17:24)
[2019-07-06] MEDS: LevALBUTEROL HCL 1.25 MG/0.5 ML *CONC.* VIAL.NEB (XOPENEX CONC.) INH SCH ×3 (07:15→19:59)
[2019-07-06 08:00] VITALS: BP_SYST 133
[2019-07-06 08:23] LABS: ANION GAP 8 (5-15); CALCIUM 8.1 mg/dL (8.4-11.0); CHLORIDE 105 mmol/L (98-107); CREATININE 1.42 mg/dL (0.55-1.30); GLUCOSE 237 mg/dL (70-99); POTASSIUM 3.9 mmol/L (3.5-5.1); SODIUM SERUM 138 mmol/L (136-145); UREA NITROGEN, BLOOD 26 mg/dL (8-21)
[2019-07-06] MEDS: ISOSORBIDE MONONITRATE 30 MG TAB.ER.24H PO SCH (08:42)
[2019-07-06] MEDS: CLOPIDOGREL BISULFATE 75 MG TABLET PO SCH (08:42)
[2019-07-06] MEDS: CARVEDILOL 6.25 MG TABLET (COREG) PO SCH ×2 (08:42→21:31)
[2019-07-06] MEDS: GABAPENTIN 300 MG CAPSULE PO SCH ×3 (08:42→21:26)
[2019-07-06] MEDS: OXYBUTYNIN CHLORIDE 5 MG TABLET PO SCH ×2 (08:42→21:27)
[2019-07-06] MEDS: MUPIROCIN 2% TOPICAL OINTMENT 22 GM NS SCH ×2 (09:06→21:36)
[2019-07-06] MEDS: NYSTATIN TP SCH (09:07)
[2019-07-06] MEDS: TRIAMCIN TP SCH (09:07)
[2019-07-06 12:54] VITALS: BP_SYST 130
[2019-07-06] MEDS ORDERED: 0.45% NACL 1,000 ML IV SCH ×2 (13:00→22:35)
[2019-07-06 16:29] VITALS: BP_SYST 126
[2019-07-06 21:00] VITALS: BP_SYST 132
[2019-07-06] MEDS: tiZANidine HCL 4 MG TABLET PO SCH (21:26)
[2019-07-06] MEDS: DONEPEZIL HCL 5 MG TABLET (ARICEPT) PO SCH (21:27)
[2019-07-07] MEDS: traMADol HCL HCL 50 MG TABLET (ULTRAM) PO SCH ×3 (00:43→12:42)
[2019-07-07] MEDS: LevALBUTEROL HCL 1.25 MG/0.5 ML *CONC.* VIAL.NEB (XOPENEX CONC.) INH SCH ×3 (00:47→13:13)
[2019-07-07 01:42] VITALS: BP_SYST 113
[2019-07-07] MEDS: ISOSORBIDE MONONITRATE 30 MG TAB.ER.24H PO SCH (08:59)
[2019-07-07 09:00] VITALS: BP_SYST 127
[2019-07-07] MEDS: OXYBUTYNIN CHLORIDE 5 MG TABLET PO SCH (09:00)
[2019-07-07] MEDS: CARVEDILOL 6.25 MG TABLET (COREG) PO SCH (09:00)
[2019-07-07] MEDS: CLOPIDOGREL BISULFATE 75 MG TABLET PO SCH (09:00)
[2019-07-07] MEDS: GABAPENTIN 300 MG CAPSULE PO SCH (09:00)
[2019-07-07] MEDS: MUPIROCIN 2% TOPICAL OINTMENT 22 GM NS SCH (09:02)
[2019-07-07] MEDS: TRIAMCIN TP SCH (09:02)
[2019-07-07] MEDS: NYSTATIN TP SCH (09:02)
[2019-07-07 13:35] VITALS: BP_SYST 101
[2019-07-07] MEDS ORDERED: NYSTATIN/TRIAMCIN 15 GM TOPICAL CREAM TP SCH ×2 (14:08→15:36)
[2019-07-07 15:16] VITALS: BP_SYST 101
== END 2019-07-07 16:00 | DRG 682 ==
LOC: SED 09:44 → SIC 14:08 → STU 07-04 16:05 → SMU 07-05 17:18
PROVIDERS: ADMIT Family Medicine; ATTEND Family Medicine
PROC: 02HV33Z Insertion of Infusion Device into Superior Vena Cava, Percutaneous Approach (ICD-10-PCS; principal; 2019-07-02)
PROC: B548ZZA Ultrasonography of Superior Vena Cava, Guidance (ICD-10-PCS; 2019-07-02)
DX: N17.9 Acute kidney failure, unspecified (principal); R57.0 Cardiogenic shock; E87.1 Hypo-osmolality and hyponatremia; N18.9 Chronic kidney disease, unspecified; I12.9 Hypertensive chronic kidney disease with stage 1 through stage 4 chronic kidney disease, or unspecified chronic kidney disease; E11.22 Type 2 diabetes mellitus with diabetic chronic kidney disease; E87.5 Hyperkalemia; I25.10 Atherosclerotic heart disease of native coronary artery without angina pectoris; M19.90 Unspecified osteoarthritis, unspecified site; R00.1 Bradycardia, unspecified; I95.9 Hypotension, unspecified; D64.9 Anemia, unspecified; W18.30XA Fall on same level, unspecified, initial encounter; Y93.89 Activity, other specified; Y92.89 Other specified places as the place of occurrence of the external cause; Y99.8 Other external cause status; Z82.49 Family history of ischemic heart disease and other diseases of the circulatory system; Z83.3 Family history of diabetes mellitus; Z79.899 Other long term (current) drug therapy
CPT/HCPCS: 36415; 70450-TC; 71045; 76770; 80048; 80053; 80162-TC; 82140-TC; 82550-TC; 82553-TC; 82962; 83605; 83880; 84132-TC; 84484; 85007; 85025; 85027; 85610-TC; 85730-TC; 86705; 86709; 87081; 87340; 90935; 90937; 94640; 96365; 96375; 97110-GP; 97116-GP; 97530-GP; 99285; C1751; G0378; G0480; G0481; G0482; J1644; J1815; J7030; J7050; J7612

== ENCOUNTER 2019-12-14 15:14 | Inpatient (IN) | payer OTHER ==
[~2019-12-14] VITALS: Ht 160 cm; Wt 68.9 kg
[~2019-12-14 15:14] MED LIST changes: -ACET325S17 PO; -ASPI-1153 PO; +HUMULIN N SUBCUT; -HYDR-3917 PO; +INSU100V7 IJ; -METF-509 PO; +NOVOLIN NPH SUBCUT; -SITA100T11 PO; -SSNPH SQ; -SSREG SUBCUT
--- NOTE | 2019-12-14 15:14 | NUR ---
SARAH ROWAN from [facility]. Placed in room 01. Placed on color television console monitor, blood pressure machine and pulse oximeter. To gown for exam. Side rails up. Report given to AR Lay.
[2019-12-14 15:15] VITALS: BP_SYST 75
--- NOTE | 2019-12-14 15:16 | NUR ---
Patient brought in by ambulance to ED c/o hypotension, shortness of breath and bilateral lower leg pain while getting some PT done. Denied any chest pain, nausea or vomiting. Patient is lert and oriented x2, respirations even and unlabored, salvadorean speaking. Patient is hypotensive, other VS stable. Will continue to monitor.
--- NOTE | 2019-12-14 15:34 | NUR ---
ER Dr. Gifford at bedside examining patient.
[2019-12-14] MEDS ORDERED: NACL 0.9% 1,000 ML IV ONE ×2 (15:45→17:15)
[2019-12-14 16:03] LABS: BASOPHILS % (AUTO) 0.8 % (0.0-2.0); EOSINOPHILS # (AUTO) 0.3 K/uL (0.0-0.4); EOSINOPHILS % (AUTO) 6.3 % (0.0-4.0); HEMATOCRIT 35.1 % (36-54); HEMOGLOBIN 11.7 g/dL (14.0-18.0); LYMPHOCYTES % (AUTO) 20.3 % (20.5-51.5); MEAN CORPUSCULAR HEMOGLOBIN 31 pg (27-31); MEAN CORPUSCULAR HGB CONC 33 % (32-36); MEAN CORPUSCULAR VOLUME 93 fL (79.0-98.0); MONOCYTES # (AUTO) 0.4 K/uL (0.0-1.0); MONOCYTES % (AUTO) 8.8 % (1.7-9.3); NEUTROPHILS % (AUTO) 63.8 % (40.0-70.0); PLATELET COUNT (AUTO) 123 K/uL (130-430); RED BLOOD CELL COUNT(AUTO) 3.77 MIL/uL (4.2-6.2); RED CELL DISTRIBUTION WIDTH 17.4 % (9.0-15.0); WHITE BLOOD COUNT (AUTO) 4.8 K/uL (4.8-10.8)
--- NOTE | 2019-12-14 16:04 | NUR ---
TAKEN TO RADIOLOGY VIA [facility]
--- NOTE | 2019-12-14 16:13 | NUR ---
Patient back from CT in stable condition.
[2019-12-14 16:27] LABS: INR 1.1 (0.80-1.20); PROTHROMBIN TIME 10.8 SECS (9.5-12.5)
--- NOTE | 2019-12-14 16:40 | NUR ---
ECG done at bedside as ordered by Dr. Hicks. Patient tolerated the procedure well. Report given to
[2019-12-14 16:45] LABS: ANION GAP 11 (5-15); CALCIUM 8.9 mg/dL (8.4-11.0); CHLORIDE 97 mmol/L (98-107); CREATININE 5.13 mg/dL (0.55-1.30); GLUCOSE 86 mg/dL (70-99); POTASSIUM 4.5 mmol/L (3.5-5.1); SODIUM SERUM 133 mmol/L (136-145)
--- NOTE | 2019-12-14 16:52 | NUR ---
Administered Morphine Sulfate IVP as ordered by Dr. Hicks. Patient tolerated the medication well.
[2019-12-14 16:53] LABS: UREA NITROGEN, BLOOD 195 mg/dL (8-21)
[2019-12-14 16:56] LABS: ALANINE AMINOTRANSFERASE 60 U/L (12-78); ALBUMIN 3.5 g/dL (3.4-4.8); ASPARTATE AMINOTRANSFERASE 52 U/L (10-37); LIPASE 245 U/L (73-393); TOTAL BILIRUBIN 0.5 mg/dL (0.0-1.0)
[2019-12-14] MEDS ORDERED: MORPHINE 2 MG/ML INJ. SYRINGE IVP ONE (17:00)
--- NOTE | 2019-12-14 17:05 | NUR ---
# 16 FR In and Out catheter with use of sterile technique. Immediate return of 50 ml yellow urine noted. Urine sample collected and sent to lab. Pt tolerated procedure well. Patient unable to toilet self.
[2019-12-14 17:31] LABS: BILIRUBIN,URINE NEGATIVE (NEGATIVE); BLOOD, URINE 3+ (NEGATIVE); CLARITY/URINE CLEAR (CLEAR); COLOR,URINE YELLOW (YELLOW); GLUCOSE,URINE NEGATIVE (NEGATIVE); KETONES,URINE NEGATIVE (NEGATIVE); LEUKOCYTE ESTERASE ,URINE NEGATIVE (NEGATIVE); NITRITE, URINE NEGATIVE (NEGATIVE); PH,URINE 5.5 (5.0-8.0); PROTEIN URINE 1+ (NEGATIVE); UROBILINOGEN,URINE 0.2 (0.2-1.0)
[2019-12-14] MEDS ORDERED: LORazepam 2 MG/ML VIAL IVP ONE (17:45)
--- NOTE | 2019-12-14 17:50 | NUR ---
Administered Ativan IVP as ordered by Dr. Hicks. Patient tolerated the medication well.
--- NOTE | 2019-12-14 18:00 | NUR ---
Daughter at bedside.
[2019-12-14 18:06] LABS: BACTERIA,URINE RARE /HPF (None Seen); RBC,URINE 20-50 /HPF (0-3); WBC,URINE 0-3 /HPF (0-3)
[2019-12-14 18:08] LABS: HYALINE CASTS, URINE 0-10 /LPF (None Seen)
--- NOTE | 2019-12-14 18:55 | NUR ---
Received admitting orders from Dr. Valente.
--- NOTE | 2019-12-14 18:56 | NUR ---
TODD signed by daughter and the ER Dr. Hicks.
--- NOTE | 2019-12-14 19:10 | NUR ---
Hung the 3rd bag of NS.
--- NOTE | 2019-12-14 19:20 | NUR ---
Report given and care transferred to AR Maxwell.
--- NOTE | 2019-12-14 19:45 | NUR ---
Dilma dawson in ED - 12/14/19 at 2014 by [email or web address] Recieved report from Jose Daniel Lay all care assumed
--- NOTE | 2019-12-14 19:45 | NUR ---
Pt daughter bedside. clarified, copied DPOA paperwork.
--- NOTE | 2019-12-14 20:00 | NUR ---
Patient will be admitted to care of . Admitted to ICU unit. Will go to room ICU 3. Belongings list completed. Complete and up to date summary report printed. SBAR report to be given at bedside with opportunity for questions.
--- NOTE | 2019-12-14 20:11 | NUR ---
Transfer to ICU via ACLS protocol. Licensed nurse present. IV present no signs or symptoms of infiltration.
[2019-12-14] MEDS ORDERED: DEXTROSE 50% JECT 50 ML DISP.SYRIN IVP PRN (20:30)
[2019-12-14 20:40] VITALS: BP_SYST 101
--- NOTE | 2019-12-14 20:40 | NUR ---
Report given to ICU nurse AR Cadet bedside. Opportunity given for questions and comments. All care endorsed.
--- NOTE | 2019-12-14 20:50 | NUR ---
Admission Note Pt in bed, Alert but confused. Primarily Turkish speaking, but able to understand a little bit of urdu. Pt able to follow commands. Pt SR on the monitor, on RA saturating in the 90s. Pt has RAC 20g running IVF. Site is C/D/I. No s/s of infiltration noted. Pt is incontinent. Cleaned and linens changed. Bed locked in lowest position, call light in reach, and safety precautions in place. Daughter (Oma) at bedside. Will continue to monitor.
[2019-12-14 21:00] VITALS: BP_SYST 125
[2019-12-14] MEDS: D5/0.45 NS 1,000 ML IV SCH (21:40)
[2019-12-14 22:00] VITALS: BP_SYST 116
--- NOTE | 2019-12-14 22:06 | NUR ---
CONSULT DR. SAVITA FREEMAN POSTAL CLERK [phone] SPOKE WITH ROXANE
--- NOTE | 2019-12-14 22:08 | NUR ---
called Spoke w/ Dr. Diaz for renal consultation. Made aware of Pt status. New orders received, will carry out as ordered.
[2019-12-14] MEDS ORDERED: PIPERACILLIN/TAZOBACTAM 2.25 GM VIAL IV ONE (22:15)
[2019-12-14] MEDS: PIPERACILLIN/TAZO 2.25G/DEX-IS 50 ML IV SCH ×2 (22:34→23:33)
--- NOTE | 2019-12-14 22:50 | NUR ---
Fregoso catheter # 16 FR Fregoso catheter with 10 cc bulb inserted with use of sterile technique. Immediate return of 200 cc of yellow/clear urine noted. Bedside drainage bag placed below level of bladder. Pt tolerated well.
[2019-12-14 23:00] VITALS: BP_SYST 122
[2019-12-15] VITALS (15 sets, daily range): BP systolic 93–138
--- NOTE | 2019-12-15 00:07 | NUR ---
PAGED DR. CRENSHAW ANSWERING SERVICE [phone] SPOKE WITH ANSELMO
--- NOTE | 2019-12-15 00:43 | NUR ---
PAGED DR. CRENSHAW 2ND TIME [phone] SPOKE WITH ANSELMO
--- NOTE | 2019-12-15 01:18 | NUR ---
PAGED DR. CRENSHAW [facility] [phone] SPOKE WITH ANSELMO
--- NOTE | 2019-12-15 01:20 | NUR ---
Called Spoke w/ Dr. Valente regarding Pt c/o of pain. New orders received, will carry out as ordered.
[2019-12-15] MEDS: MORPHINE 2 MG/ML INJ. SYRINGE IVP PRN ×5 (01:40→23:02)
--- NOTE | 2019-12-15 02:02 | NUR ---
RN Rounds Pt in bed asleep, pain medication given, Pt tolerated well. BP stable. Will continue to monitor.
--- NOTE | 2019-12-15 03:54 | NUR ---
Endorsement Report given to oncoming RN at bedside via SBAR approach.
--- NOTE | 2019-12-15 04:00 | NUR ---
Opening Note Received patient report from endorsing RN via SBAR communication
[2019-12-15 05:59] LABS: BASOPHILS % (AUTO) 0.4 % (0.0-2.0); EOSINOPHILS # (AUTO) 0.3 K/uL (0.0-0.4); EOSINOPHILS % (AUTO) 6.4 % (0.0-4.0); HEMATOCRIT 34.5 % (36-54); HEMOGLOBIN 11.7 g/dL (14.0-18.0); LYMPHOCYTES # (AUTO) 1.3 K/uL (1.0-5.5); LYMPHOCYTES % (AUTO) 25.5 % (20.5-51.5); MEAN CORPUSCULAR HEMOGLOBIN 31 pg (27-31); MEAN CORPUSCULAR HGB CONC 34 % (32-36); MEAN CORPUSCULAR VOLUME 92 fL (79.0-98.0); MONOCYTES # (AUTO) 0.4 K/uL (0.0-1.0); MONOCYTES % (AUTO) 7.9 % (1.7-9.3); NEUTROPHILS % (AUTO) 59.8 % (40.0-70.0); PLATELET COUNT (AUTO) 108 K/uL (130-430); RED BLOOD CELL COUNT(AUTO) 3.74 MIL/uL (4.2-6.2); RED CELL DISTRIBUTION WIDTH 17.2 % (9.0-15.0)
[2019-12-15] MEDS: D5/0.45 NS 1,000 ML IV SCH ×3 (06:00→21:21)
--- NOTE | 2019-12-15 06:00 | NUR ---
Nursing Note Patient took off gown and pulling at seymour catheter. Patient redressed, turned, reoriented to place and time. Patient's bed in lowest position with call light within reach. PRN medication administered as requested.
[2019-12-15 06:14] LABS: ALANINE AMINOTRANSFERASE 54 U/L (12-78); ALBUMIN 3.3 g/dL (3.4-4.8); ANION GAP 11 (5-15); ASPARTATE AMINOTRANSFERASE 49 U/L (10-37); CALCIUM 8.3 mg/dL (8.4-11.0); CHLORIDE 101 mmol/L (98-107); GLUCOSE 124 mg/dL (70-99); PHOSPHORUS 6.2 mg/dL (2.7-4.5); SODIUM SERUM 136 mmol/L (136-145); TOTAL BILIRUBIN 0.7 mg/dL (0.0-1.0)
[2019-12-15] MEDS: PIPERACILLIN/TAZO 2.25G/DEX-IS 50 ML IV SCH ×4 (06:18→23:09)
[2019-12-15 06:48] LABS: UREA NITROGEN, BLOOD 162 mg/dL (8-21)
--- NOTE | 2019-12-15 07:25 | NUR ---
MD Call Dr. Valente contacted regarding patient labs, physician provided orders
--- NOTE | 2019-12-15 07:27 | NUR ---
Closing Note Patient report given via SBAR communication to oncoming RN
--- NOTE | 2019-12-15 07:28 | NUR ---
Opening Note Received bedside report from endorsing RN for continuation of care. Received patient awake and resting in bed, denies any pain or SOB. No signs or symptoms of acute distress noted. Bed locked in lowest position, bed alarm on, and call light within reach. Fall and safety precautions in place.
--- NOTE | 2019-12-15 08:50 | NUR ---
Nutrition Update Bentley Scale 16 noted. Pt admitted for shock, renal failure. Diet: NPO BMI: 26.9 kg/m2 RD to follow per nutrition care standards.
[2019-12-15] MEDS: CLOPIDOGREL BISULFATE 75 MG TABLET PO SCH (09:14)
--- NOTE | 2019-12-15 09:19 | NUR ---
Ultrasound at bedside for renal ultrasound done by nutrition tech.
--- NOTE | 2019-12-15 09:24 | NUR ---
Dr. Valente at bedside examining patient. New orders received.
--- NOTE | 2019-12-15 09:25 | NUR ---
Telemetry Status Patient is stable to transfer to telemetry unit per Dr. Valente. Awaiting hospital bed. Patient will remain in ICU and be monitored under telemetry status until hospital bed becomes available.
--- NOTE | 2019-12-15 10:35 | NUR ---
Dr. Fry at bedside examining patient. New orders received.
[2019-12-15] MEDS: INSULIN REGULAR, HUMAN 100 UNITS/ML, 10 ML VIAL (humuLIN R) SUBCUT PRN ×3 (11:34→23:08)
--- NOTE | 2019-12-15 11:58 | NUR ---
Transfer to Telemetry Unit Patient transferred to telemetry unit room 120 A on hospital bed, on continuous site monitor using ACLS protocol. ACLS RN present at all times. No signs or symptoms of acute distress noted. Endorsed bedside report to Hilaria SHEETS RN using SBAR approach for continuation of care.
--- NOTE | 2019-12-15 12:00 | NUR ---
Admission Note Received patient from ER with diagnosis of SHOCK, RENAL FAILURE. Initial Plan of Care discussed-patient verbalized understanding. Family at bedside. Oriented to room, call light, pain management and safety. Addendum: 12/15/19 at 1232 by Dee Swenson RN above notes entered in error
--- NOTE | 2019-12-15 12:00 | NUR ---
patient received from ICU report received by Darin JOYNER, educated patient on plan of care and call light system, patient verbalized understanding, seymour in place, IV site intact with IVF running, no signs of distress at this time, fall/safety precautions in place.
--- NOTE | 2019-12-15 14:00 | NUR ---
IV RE-INSERTION: Restarted on right hand . Successful after 1 attempts. Resumed current IVF of D5 1/2NS and regulated @ 125 per hour. Will observe for any signs of infiltration.
--- NOTE | 2019-12-15 15:31 | NUR ---
SS NOTES: DOCUMENTUM CONSULTANT was referred by CM to see patient for DCP. DOCUMENTUM CONSULTANT contacted POA, Omaseth Healy @ [phone]. Demographic information confirmed. DOCUMENTUM CONSULTANT met with patient initially at bedside; pt appeared to be confused and spoke only Thai. Pt is a resident at [facility] and has been living there for 2 years. 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 Dtr stated her father used to speak Chinese but does speak it now. Per daughter she has noticed patient becoming confused gradually and stated the patient has an appointment with the psychiatrist that [facility] provided. Per dtr, pt has been showing compulsive behavior, such as collecting used gloves and plastic bottles to sell. Pt does not have history of substance use/abuse. Dtr states pt is dependent on a walker to ambulate, needs assistance in showering and is able to feed himself. Dtr states pt only owns a walker and a cane. Dtr states the family arranges for transport if pt needs to go to/from MD offices. Per daughter [facility] checks on his blood glucose level 3x/day. Pt's source of income is his pension and SSA; unknown amount. Oma is the POA; copy provided to unit. If SNF is indicated for discharge, they want to use [facility] and no preference on [facility]. NO further SS needs identified at this time, but will remain available when needed.
--- NOTE | 2019-12-15 16:31 | NUR ---
prn pain medication patient has pain, educated on medication use and side effects, patient and daughter verbalized understanding, patient tolerated well, no other needs at this time, fall/safety precautions in place.
--- NOTE | 2019-12-15 19:00 | NUR ---
closing note patient is getting anxious, attempting to get out of bed, seymour in place, patient pulled out IV, is screaming that he needs to get out, endorsed report to noc shift nurse to continue with care, bed alarm on, side rails up, call light within reach, fall/safety precautions in place. made charge nurses aware of patient's status and agitation.
--- NOTE | 2019-12-15 19:15 | NUR ---
Pt was received attempting to get out of bed with bed alarm going off. Pt is confused and disoriented. Pt already removed his IV Angiocath which was found on the floor. Pt was assisted back to bed and reoriented to his room and surrounding. Fall and safety precautions are in place. Bed is in the lowest and locked positions. Call light is with pt and bed alarm is on.
--- NOTE | 2019-12-15 19:35 | NUR ---
Pt attempting to get out of bed again and setting off bed alarm. Pt remains very confused and disoriented. Pt was assisted back to bed with bed alarm on and three side rails up.
--- NOTE | 2019-12-15 19:37 | NUR ---
PAGED PAGED DOCTOR CRENSHAW FOR ORDERS
--- NOTE | 2019-12-15 20:30 | NUR ---
New IV line restarted in RFA with Angiocath 22G after one attempt, utilizing sterile technique. IVF of D5 1/2NS resumed at 125ml/hr. Pt remains very confused and disoriented.
[2019-12-15] MEDS ORDERED: HALOPERIDOL LACTATE 5 MG/ML VIAL IVP ONE (21:00)
[2019-12-15] MEDS ORDERED: HALOPERIDOL LACTATE 5 MG/ML VIAL IVP PRN (21:00)
--- NOTE | 2019-12-15 21:20 | NUR ---
Haldol 2mg given IV as ordered by Dr. Valente. IVF is infusing well in RFA.
--- NOTE | 2019-12-15 22:30 | NUR ---
Pt remains very confused and disoriented. Pt has attempted to get out of bed several times. 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
--- NOTE | 2019-12-15 23:02 | NUR ---
Morphine 2mg given IV for c/o generalized body aches. Call light is with pt and bed alarm is on.
--- NOTE | 2019-12-15 23:08 | NUR ---
Accucheck 214 and 4 units Regular Insulin given SQ. Skin warm and dry to touch. IVF of D5 1/2NS is infusing well in RFA.
--- NOTE | 2019-12-16 00:20 | NUR ---
Pt pulled out his Fregoso catheter with the balloon intact. Small amount of bleeding noted. Pt remains very confused and disoriented. IVF is infusing well in RFA. Call light is with pt and bed alarm is on.
--- NOTE | 2019-12-16 02:00 | NUR ---
Pt remains confused and disoriented, attempting to get out of bed. 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 Pt was reoriented to his room and surrounding. IVF is infusing well in RFA.
--- NOTE | 2019-12-16 02:50 | NUR ---
Pt was incontinent of large amount of pinkish urine. No blood clots seen. Pt remains confused and disoriented. Complete bed linen change done with the assistance of charge nurse. IVF is infusing well in RFA.
[2019-12-16 03:09] VITALS: BP_SYST 154
[2019-12-16] MEDS: MORPHINE 2 MG/ML INJ. SYRINGE IVP PRN (03:11)
--- NOTE | 2019-12-16 03:11 | NUR ---
Morphine 2mg given IV for c/o penile pain. Small amount of pinkish urine noted oozing from pt's penis. Call light is with pt and bed alarm is on. IVF is infusing well in RFA.
--- NOTE | 2019-12-16 03:48 | NUR ---
Pt is very confused and agitated. Haldol 2mg given IV. IVF is infusing well in RFA. Call light is with pt and bed alarm is on.
[2019-12-16] MEDS: D5/0.45 NS 1,000 ML IV SCH ×2 (05:12→15:21)
[2019-12-16] MEDS: INSULIN REGULAR, HUMAN 100 UNITS/ML, 10 ML VIAL (humuLIN R) SUBCUT PRN ×3 (05:15→17:53)
--- NOTE | 2019-12-16 05:15 | NUR ---
Accucheck 173 and 2 units Regular Insulin given SQ. Skin warm and dry to touch. IVF of D5 1/2NS is infusing well in RFA.
[2019-12-16] MEDS: PIPERACILLIN/TAZO 2.25G/DEX-IS 50 ML IV SCH ×2 (05:17→11:10)
--- NOTE | 2019-12-16 06:10 | NUR ---
Pt incontinent of large amount of pinkish urine. No blood clots noted. New Fregoso cath #16 inserted utilizing sterile technique. Small amount of bloody urine noted with blood clots. Will contact for bladder irrigation order. Addendum: 12/16/19 at 0639 by Eunice Rowland RN Nimisha care was given with partial bed linen change.
[2019-12-16 06:20] LABS: BASOPHILS % (AUTO) 0.5 % (0.0-2.0); EOSINOPHILS # (AUTO) 0.1 K/uL (0.0-0.4); EOSINOPHILS % (AUTO) 1.7 % (0.0-4.0); HEMATOCRIT 35.9 % (36-54); HEMOGLOBIN 12.2 g/dL (14.0-18.0); LYMPHOCYTES # (AUTO) 0.8 K/uL (1.0-5.5); LYMPHOCYTES % (AUTO) 10.9 % (20.5-51.5); MEAN CORPUSCULAR HEMOGLOBIN 32 pg (27-31); MEAN CORPUSCULAR HGB CONC 34 % (32-36); MEAN CORPUSCULAR VOLUME 93 fL (79.0-98.0); MONOCYTES # (AUTO) 0.5 K/uL (0.0-1.0); NEUTROPHILS # (AUTO) 5.6 K/uL (1.8-7.7); NEUTROPHILS % (AUTO) 79.9 % (40.0-70.0); PLATELET COUNT (AUTO) 129 K/uL (130-430); RED BLOOD CELL COUNT(AUTO) 3.86 MIL/uL (4.2-6.2); RED CELL DISTRIBUTION WIDTH 17.4 % (9.0-15.0)
--- NOTE | 2019-12-16 06:20 | NUR ---
Dr. Fry was informed pt pulled out Fregoso cath last night with the balloon intact and pt has blood clots with new Fregoso cath insertion this AM. New orders obtained for 3 way Fregoso Cath with continuous bladder irrigation.
[2019-12-16 06:37] LABS: ALANINE AMINOTRANSFERASE 59 U/L (12-78); ALBUMIN 3.5 g/dL (3.4-4.8); CALCIUM 8.9 mg/dL (8.4-11.0); CHLORIDE 101 mmol/L (98-107); CREATININE 3.06 mg/dL (0.55-1.30); GLUCOSE 174 mg/dL (70-99); POTASSIUM 4.5 mmol/L (3.5-5.1); SODIUM SERUM 136 mmol/L (136-145)
[2019-12-16 06:54] LABS: ANION GAP 9 (5-15)
[2019-12-16 07:07] LABS: ASPARTATE AMINOTRANSFERASE 82 U/L (10-37); TOTAL BILIRUBIN 1.3 mg/dL (0.0-1.0)
[2019-12-16 07:08] LABS: UREA NITROGEN, BLOOD 126 mg/dL (8-21)
--- NOTE | 2019-12-16 07:20 | NUR ---
CBI tubing not available in [facility] [employer]. Called ICU and not available in ICU. Called OR and tubing available there or [employer]. Will endorse to day shift nurse.
--- NOTE | 2019-12-16 07:40 | NUR ---
opening note patient is restless in bed, tossing and turning, tugging on seymour catheter, reoriented patient on safety education and plan of care, patient did not give me a verbal understanding, kept tugging on the seymour, I cleaned patient's hand and farhana area, secured seymour, no other needs addressed at this time, brake armed, bed in lowest position, two side rails up, call light within reach, bed alarm on, fall/safety and aspiration precautions in place, IV site secured with IVF running and patient tolerating well. Addendum: 12/16/19 at 0934 by Hilaria Martinez RN 799 Dr Fry on unit, informed him about trying to manual irrigate patient first before switching out seymour for continuous irrigation and avoiding more trauma, okayed for that.
[2019-12-16 08:00] VITALS: BP_SYST 126
[2019-12-16] MEDS: CLOPIDOGREL BISULFATE 75 MG TABLET PO SCH (09:00)
--- NOTE | 2019-12-16 10:40 | NUR ---
patient moved to 119B patient was positive for MRSA nares, informed Dr Valente about it, patient was moved rooms, eyes closed breathing easy and nonlabored, no signs of distress at this time, fall/safety and contact precautions in place.
--- NOTE | 2019-12-16 11:25 | NUR ---
CONSULTATION PAGED/CALLED Reason for Consultation: SEPSIS Person Who was Notified: SALVATORE Consulting Physician: DR. MEDRANO Mechanical Specialist Specialty: INFECTIOUS DISEASE Ordering Physician: DR. CRENSHAW
--- NOTE | 2019-12-16 12:02 | NUR ---
unsuccessful with seymour change attempted to switch to 3way seymour for continuous irrigation, there was too much resistance and unable to insert new seymour catheterm was paged to let him know. Addendum: 12/16/19 at 1510 by Hilaria Martinez RN late entry Dr Valente did call back and asked for a urology consult.
[2019-12-16 12:11] VITALS: BP_SYST 133
--- NOTE | 2019-12-16 13:19 | NUR ---
CONSULTATION PAGED/CALLED Reason for Consultation: HEMATURIA Person Who was Notified: LILIA Consulting Physician:MARIEL DAVID Graduate Research Assistant Specialty: UROLOGIST Ordering Physician:
[2019-12-16] MEDS: cefTRIAXone 1 GM in D5W 50 ML IV SCH (13:24)
[2019-12-16] MEDS ORDERED: VANCOMYCIN HCL 1,000 MG in NS 250 ML IV SCH (14:00)
--- NOTE | 2019-12-16 14:00 | NUR ---
skin care patient resting in bed, skin/wound care was done, patient tolerated well, no signs of distress at this time, no other needs addressed at this time, fall/safety and contact precautions in place.
--- NOTE | 2019-12-16 15:33 | NUR ---
Dietitian Recommendations * Consider swallow eval prior to diet advancement LP, RD Please refer to Nutrition Assessment for details. Addendum: 12/16/19 at [address] Amended: Links added.
[2019-12-16 16:01] VITALS: BP_SYST 126
--- NOTE | 2019-12-16 16:10 | NUR ---
incontinence care patient voided, with assist patient was cleaned and changed, still some bleeding noted but no clots seen, no signs of distress at this time, no other needs at this time, fall/safety and contact precautions in place.
--- NOTE | 2019-12-16 18:33 | NUR ---
closing note patient is restless in bed, tossing and turning, reoriented patient on safety education and plan of care, patient did not give me a verbal understanding, patient keeps taking off leads and gown, no other needs addressed at this time, brake armed, bed in lowest position, three side rails up, call light within reach, bed alarm on, fall/safety and contact and aspiration precautions in place, IV site secured with IVF running and patient tolerating well, sitter present, patient is still have bleeding at the penis due to seymour trauma, still no seymour at this time, patient is voiding, awaiting for Urology consult to see patient, will endorse report to [facility] shift nurse to continue with care, follow up with Urology consult, patient is still NPO. Addendum: 12/16/19 at 1906 by Hilaria Martinez RN attempted seymour insertion again, was unsuccessfull
[2019-12-16 20:00] VITALS: BP_SYST 126
[2019-12-16] MEDS ORDERED: MUPIROCIN 2% TOPICAL OINTMENT 22 GM TP SCH (21:00)
--- NOTE | 2019-12-16 21:00 | NUR ---
PT RECIEVED AWAKE ALERT AND DISORIENTED X3 .PT CONTINUE TO TAKE OUT LEADS CONTINUOSLY . PT ON SINUS RYTHM NO ECTOPIC . PT VITAL STABLE, PT IS VOIDING BLOODY URINE . WAITING FOR UROLOGIST TO IN INSERT A CBARERA CATHETER .PT ON IV D51/2NS AT75CC/HR . PT HAVE SKIN TIRES . DRSG ON THEM . T CONTINUS TAKING OUT LEADS . IF PT CONTINUES WILL GET AN ORDER FOR SOFT WRIST RISTENT .V/S STABLE .
[2019-12-16] MEDS: MUPIROCIN 2% TOPICAL OINTMENT 22 GM NS SCH (22:00)
--- NOTE | 2019-12-17 | NUR ---
V/S STABLE . NO C/O CHEST PAIN . PT ON SINUS RYTHM . PT CONTINUE ON Q4HRS VITAL SIGN . ON SINUS RYTHM . PT URINE IS MUCH MORE CLEARER . PT CONTINUES TO VOID . IV D51/2 NS CONTINUE AT 75CC/HR .
[2019-12-17] MEDS: D5/0.45 NS 1,000 ML IV SCH ×2 (04:41→16:50)
--- NOTE | 2019-12-17 05:00 | NUR ---
PT MAINTAIN SINUS RYTHM . PT CHANGED PT NO NO ECTOPIC BEAT PT CONTINUE ,BP115/78. HR 140/MIN . WILL MONITOTOR PT AND CALL THE DR IF HEART RATE CONTINUES TO BE UP TO 140/MIN .
[2019-12-17] MEDS: MORPHINE 2 MG/ML INJ. SYRINGE IVP PRN (05:53)
[2019-12-17] MEDS: INSULIN REGULAR, HUMAN 100 UNITS/ML, 10 ML VIAL (humuLIN R) SUBCUT PRN ×2 (06:32→16:48)
[2019-12-17 06:37] LABS: BASOPHILS % (AUTO) 0.6 % (0.0-2.0); EOSINOPHILS # (AUTO) 0.2 K/uL (0.0-0.4); EOSINOPHILS % (AUTO) 2.5 % (0.0-4.0); HEMATOCRIT 36.1 % (36-54); HEMOGLOBIN 12.1 g/dL (14.0-18.0); LYMPHOCYTES # (AUTO) 0.8 K/uL (1.0-5.5); LYMPHOCYTES % (AUTO) 11.3 % (20.5-51.5); MEAN CORPUSCULAR HEMOGLOBIN 31 pg (27-31); MEAN CORPUSCULAR HGB CONC 33 % (32-36); MEAN CORPUSCULAR VOLUME 93 fL (79.0-98.0); MONOCYTES # (AUTO) 0.4 K/uL (0.0-1.0); MONOCYTES % (AUTO) 5.8 % (1.7-9.3); NEUTROPHILS # (AUTO) 5.7 K/uL (1.8-7.7); NEUTROPHILS % (AUTO) 79.8 % (40.0-70.0); PLATELET COUNT (AUTO) 120 K/uL (130-430); RED BLOOD CELL COUNT(AUTO) 3.87 MIL/uL (4.2-6.2); RED CELL DISTRIBUTION WIDTH 17.4 % (9.0-15.0); WHITE BLOOD COUNT (AUTO) 7.1 K/uL (4.8-10.8)
[2019-12-17 06:59] LABS: ALANINE AMINOTRANSFERASE 53 U/L (12-78); ALBUMIN 3.3 g/dL (3.4-4.8); ANION GAP 8 (5-15); ASPARTATE AMINOTRANSFERASE 110 U/L (10-37); CALCIUM 9.5 mg/dL (8.4-11.0); CHLORIDE 102 mmol/L (98-107); CREATININE 2.68 mg/dL (0.55-1.30); GLUCOSE 188 mg/dL (70-99); POTASSIUM 4.3 mmol/L (3.5-5.1); SODIUM SERUM 134 mmol/L (136-145); UREA NITROGEN, BLOOD 98 mg/dL (8-21)
--- NOTE | 2019-12-17 08:00 | NUR ---
Pt endorsed by maintenance technician 3rd shift RN. Pt asleep, arouse to name, confused, NAD, returned to sleep.
[2019-12-17 08:30] VITALS: BP_SYST 111
--- NOTE | 2019-12-17 10:00 | NUR ---
AM CARE DONE, COMPLETE BED BATH, AND LINEN CHANGE, PATIENT TOLERATED WELL. VS WNL, IN ROOM MONITORING, NO S/S OF DISTRESS, IV INFILTRATED, RESTARTED W/ 2 ATTEMPTS, 22 G TO R FA, PT TOLERATED WELL W/ VERBAL ASSIST OF A FAM MEMBER. WILL CONT TO MONITOR.
[2019-12-17] MEDS: MUPIROCIN 2% TOPICAL OINTMENT 22 GM NS SCH (11:06)
[2019-12-17] MEDS: cefTRIAXone 1 GM in D5W 50 ML IV SCH (11:08)
--- NOTE | 2019-12-17 12:10 | NUR ---
UROLOGIST VISITED PATIENT AT BEDSIDE. PATIENT ABLE TO RESPOND IN VENE[place]UELAN, SIMPLE WORDS. RESTING QUIETLY NO S/S OF DISTRESS NOTED.
[2019-12-17 12:53] VITALS: BP_SYST 94
--- NOTE | 2019-12-17 13:06 | NUR ---
Discharge Planning: DCP faxed Mya from [facility] (f [phone] p [phone]) Pt referral to [facility] is waiting for room and she will set up transportation. Addendum: 12/17/19 at 1505 by Lisset Gonzales DP Per Mya from [facility] (f [phone] p [phone]) patient accepted to [facility], [facility] P/U 4:30pm patient packet taken to nurse station. DCP notified daughter Oma.
[2019-12-17] MEDS: CLOPIDOGREL BISULFATE 75 MG TABLET PO SCH (13:22)
--- NOTE | 2019-12-17 14:00 | NUR ---
IN ROOM MONITORING FOR PATIENT SAFETY. BEAM BUILDER VISITED AT BEDSIDE, DISCUSSED IMPROVED RENAL STATUS, PLEASED WITH HIS VOIDING WITHOUT A CABRERA. PATIENT IS PENDING D/C TO SNF.
[2019-12-17 15:33] VITALS: BP_SYST 131
--- NOTE | 2019-12-17 16:07 | NUR ---
D/C DISPOSITION COMPLETED. CALL TO [facility] @ [phone] S/W NAN HARRIS, REPORT GIVEN. VS WNL. PENDING AMBULANCE SPINE SURGEON Addendum: 12/17/19 at 1610 by Thirty Nine shank sorter Amended: Links added.
[2019-12-17 16:38] VITALS: BP_SYST 145
--- NOTE | 2019-12-17 17:54 | NUR ---
Bedside report given to EMT's of [facility]. VS done BP 106/67, P 103, RR 20, in NAD. bed to [facility] by EMT's, Patient tolerated well. Patient D/C to [place] [facility], left with [facility]. SD Tele monitor removed by scrap charger. IV saline lock 22 g to R forearm, w/ pos. flush, no noted infiltration.
== END 2019-12-17 17:45 | DRG 871 ==
LOC: SED 15:14 → SIC 19:18 → STU 12-15 11:53
PROVIDERS: ADMIT Internal Medicine Hospice and Palliative Medicine; ATTEND Internal Medicine Hospice and Palliative Medicine
DX: A41.9 Sepsis, unspecified organism (principal); R65.21 Severe sepsis with septic shock; N17.0 Acute kidney failure with tubular necrosis; I13.0 Hypertensive heart and chronic kidney disease with heart failure and stage 1 through stage 4 chronic kidney disease, or unspecified chronic kidney disease; S37.30XA Unspecified injury of urethra, initial encounter; N18.9 Chronic kidney disease, unspecified; E11.22 Type 2 diabetes mellitus with diabetic chronic kidney disease; I50.9 Heart failure, unspecified; G89.29 Other chronic pain; F03.90 Unspecified dementia, unspecified severity, without behavioral disturbance, psychotic disturbance, mood disturbance, and anxiety; M10.9 Gout, unspecified; M54.9 Dorsalgia, unspecified; I25.10 Atherosclerotic heart disease of native coronary artery without angina pectoris; R31.0 Gross hematuria; X58.XXXA Exposure to other specified factors, initial encounter; Y92.238 Other place in hospital as the place of occurrence of the external cause; Y93.89 Activity, other specified; Y99.8 Other external cause status; Z79.899 Other long term (current) drug therapy; Z90.49 Acquired absence of other specified parts of digestive tract; Z22.322 Carrier or suspected carrier of Methicillin resistant Staphylococcus aureus
CPT/HCPCS: 36415; 36600; 71045; 76770; 80053; 81000-TC; 82947-TC; 82962; 83605; 83690-TC; 83735-TC; 84100-TC; 84484; 85025; 85610-TC; 87040-TC; 87081; 93005; 96361; 96374; 96375; 99291; G0378; J0696; J1630; J1815; J2060; J2270; J2543; J3370; J7030; J7050; J7060

== ENCOUNTER 2019-12-19 19:16 | Inpatient (IN) | payer OTHER ==
[~2019-12-19] VITALS: Ht 167.6 cm; Wt 68.0 kg
[~2019-12-19 19:16] MED LIST changes: -DICL100G19 TP; -LIDOINT TP
[2019-12-19 19:30] VITALS: BP_SYST 95
[2019-12-19] MEDS ORDERED: NACL 0.9% 1,000 ML IV ONE ×2 (20:00→22:45)
[2019-12-19 20:30] LABS: BASOPHILS % (AUTO) 0.5 % (0.0-2.0); EOSINOPHILS # (AUTO) 0.4 K/uL (0.0-0.4); EOSINOPHILS % (AUTO) 8.8 % (0.0-4.0); HEMATOCRIT 34.4 % (36-54); HEMOGLOBIN 11.2 g/dL (14.0-18.0); LYMPHOCYTES # (AUTO) 0.8 K/uL (1.0-5.5); LYMPHOCYTES % (AUTO) 15.6 % (20.5-51.5); MEAN CORPUSCULAR HEMOGLOBIN 31 pg (27-31); MEAN CORPUSCULAR HGB CONC 33 % (32-36); MEAN CORPUSCULAR VOLUME 94 fL (79.0-98.0); MONOCYTES # (AUTO) 0.3 K/uL (0.0-1.0); MONOCYTES % (AUTO) 6.7 % (1.7-9.3); NEUTROPHILS # (AUTO) 3.4 K/uL (1.8-7.7); NEUTROPHILS % (AUTO) 68.4 % (40.0-70.0); PLATELET COUNT (AUTO) 120 K/uL (130-430); RED BLOOD CELL COUNT(AUTO) 3.67 MIL/uL (4.2-6.2); RED CELL DISTRIBUTION WIDTH 17.3 % (9.0-15.0); WHITE BLOOD COUNT (AUTO) 4.9 K/uL (4.8-10.8)
[2019-12-19 20:40] LABS: ANION GAP 10 (5-15); CALCIUM 8.7 mg/dL (8.4-11.0); CHLORIDE 99 mmol/L (98-107); CREATININE 3.79 mg/dL (0.55-1.30); GLUCOSE 194 mg/dL (70-99); POTASSIUM 3.9 mmol/L (3.5-5.1); SODIUM SERUM 133 mmol/L (136-145)
[2019-12-19 20:47] LABS: ALANINE AMINOTRANSFERASE 50 U/L (12-78); ASPARTATE AMINOTRANSFERASE 60 U/L (10-37); TOTAL BILIRUBIN 0.4 mg/dL (0.0-1.0)
[2019-12-19 20:48] LABS: UREA NITROGEN, BLOOD 122 mg/dL (8-21)
[2019-12-19] MEDS ORDERED: ONDANSETRON HCL 4 MG/2 ML VIAL IVP ONE (21:30)
[2019-12-19] MEDS ORDERED: MORPHINE 4 MG/ML INJ. SYRINGE IVP ONE ×2 (21:30→23:00)
--- NOTE | 2019-12-19 21:35 | NUR ---
Patient to ER bed 1 to gown for evaluation. Side rails up.
--- NOTE | 2019-12-19 21:35 | NUR ---
NAPOLEON Justin at bedside examining patient.
[2019-12-19] MEDS ORDERED: ONDANSETRON HCL 4 MG/2 ML VIAL ONE (21:38)
[2019-12-19] MEDS ORDERED: MORPHINE 4 MG/ML INJ. SYRINGE ONE (21:39)
--- NOTE | 2019-12-19 21:40 | NUR ---
Pt brought in by [facility]. Pt awake, alert, mildly confused. Pt chief complaint of hypotensive episode. Pt also states he has had episodes of chest pain. Pt States he has had nausea, vomiting, denies shortness of breath. Pt states he was recently hospitalized in our ICU for same dx. Pt resting in ed bed, guarding chest, showing mild/moderate signs of distress. Pt daughter bedside, informed us that patient is DNR/DNI with selective treatment. Pt denies any other medical complaint at this time. Daughter bedside states that she will be leaving to go home soon, but would like a call if condition worsens markedly.Daughter understands that patient may be admitted to hospital in Telemetry or ICU
[2019-12-19] MEDS ORDERED: KETOROLAC TROMETHAMINE 30 MG VIAL IVP ONE (22:00)
--- NOTE | 2019-12-19 23:00 | NUR ---
Pt resting in ED bed. No acute distress at this time. Pain is managed per patient
[2019-12-19] MEDS ORDERED: PIPERACILLIN/TAZO 3.375 GM in NS 50 ML IV ONE (23:45)
[2019-12-20] VITALS (23 sets, daily range): BP systolic 73–155
--- NOTE | 2019-12-20 | NUR ---
# 14 FR In and Out catheter with use of sterile technique. Immediate return of 100 ml Light red urine noted. Urine sample collected and sent to lab. Pt tolerated procedure well.
[2019-12-20 00:25] LABS: BILIRUBIN,URINE NEGATIVE (NEGATIVE); BLOOD, URINE 3+ (NEGATIVE); CLARITY/URINE SL CLOUDY (CLEAR); COLOR,URINE YELLOW (YELLOW); GLUCOSE,URINE NEGATIVE (NEGATIVE); KETONES,URINE NEGATIVE (NEGATIVE); LEUKOCYTE ESTERASE ,URINE NEGATIVE (NEGATIVE); NITRITE, URINE NEGATIVE (NEGATIVE); PROTEIN URINE TRACE (NEGATIVE); UROBILINOGEN,URINE 0.2 (0.2-1.0)
--- NOTE | 2019-12-20 00:33 | NUR ---
Pt resting in ED bed, no acute distress noted.
[2019-12-20 00:53] LABS: BACTERIA,URINE FEW /HPF (None Seen); HYALINE CASTS, URINE 0-10 /LPF (None Seen); RBC,URINE 20-50 /HPF (0-3); URINE AMORPHOUS URATE 1+ /HPF (None Seen); WBC,URINE 0-3 /HPF (0-3)
[2019-12-20] MEDS ORDERED: PIPERACILLIN/TAZOBACTAM 3.375 GM/VIAL (ZOSYN) IV ONE (00:54)
[2019-12-20] MEDS ORDERED: NACL 0.9% 1,000 ML IV SCH (01:00)
--- NOTE | 2019-12-20 01:34 | NUR ---
Patient will be admitted to care of . Admitted to Tele unit. Will go to room 132C. Belongings list completed. Complete and up to date summary report printed. SBAR report to be given at bedside with opportunity for questions.
--- NOTE | 2019-12-20 01:50 | NUR ---
Called to update on hypotension episodes. He added Levophed, upgraded pt to ICU Addendum: 12/20/19 at 0237 by [email or web address] Called to update on hypotension episodes. He added Levophed, upgraded pt to ICU
--- NOTE | 2019-12-20 02:19 | NUR ---
Spoke with , On-Call for . Informed him of Afib with strings of V-tach per 's reccomendation. states no change in orders. To wait for consult in AM
--- NOTE | 2019-12-20 02:37 | NUR ---
Transfer to ICU via ACLS protocol. Licensed nurse present. IV present no signs or symptoms of infiltration.
--- NOTE | 2019-12-20 03:00 | NUR ---
PATIENT WAS ADMITTED FROM THE ER FROM SN[facility] FOR CHEST PAIN TO ROOM ICU 7, PLACE IN BED, NOTICE THE PATIENT HAD BROWN PASTY STOOL , SKIN CARE WAS GIVEN , PATIENT WAS ABLE TO HELP WITH TURNING IN BED, STABLE AWAKE AND WAS MAKING LOUD NOISE, LIKE TRYING TO MOVE HIS BOWEL ASK NOT TO DO THIS MAY CAUSE HIM TO HAVE AN HEART ATTACK , THE PATIENT WOULD JUST LOOK AT YOU NO VERBRL RESPOND WAS GIVEN 0430 IVF OF NS WAS HUNG AT 70 , PATENT , NOTICE PATIENT HAD NOT VOIDED WAS GIVEN 3 LITER OF NS IN THE ER , ABDOMEN WAS DISTEND AND FELT FIRMED WHEN TOUCH ,DRESSING ON THE LOWER LEFT ARM AND AN MONITOR WAS REMOVED FROM THE LEFT ARM CAUSE AN SKIN TEAR OP SITE WAS APPLIED , COLOR FLUSK TEMP 99.2 KEPT TRYING TO MOVE HIS BOWL PUTTING AN STRAINED ON THE HEART STABLE CARDIA MONITOR SINUS WITH MULT PVS, BP 106/77 PATENT 0630 NOTICE BP HAD DROP 77/48-83/56 HR 90 PATIENT WAS MORE CALM NOW RESTING NO URINE OUT PUT PATIENT MAY NEED TO GO AN LEVOPHED DRIP WILL GIVE THIS REPORT TO ON COMING NURSE STABLE WILL CONTINUED WITH PLAN OF CARE, STABLE
[2019-12-20 06:34] LABS: ANION GAP 11 (5-15); CALCIUM 8.5 mg/dL (8.4-11.0); CHLORIDE 104 mmol/L (98-107); CREATININE 3.35 mg/dL (0.55-1.30); GLUCOSE 104 mg/dL (70-99); POTASSIUM 4.1 mmol/L (3.5-5.1); SODIUM SERUM 134 mmol/L (136-145)
--- NOTE | 2019-12-20 07:30 | NUR ---
Opening Note Patient received alert and arousable, resting in bed. Patient on account development representative with a-fib. Patient on 2L oxygen via nasal cannula breathing evenly and unlabored. Patient has a peripheral IV receiving fluids. Patient incontinent. Skin non-intact. Isolation and safety precautions enforced.
[2019-12-20] MEDS ORDERED: NOREPINEPHRINE 4 MG/4 ML VIAL IV ONE (07:44)
--- NOTE | 2019-12-20 07:44 | NUR ---
Dr. Fry is aware of consult
[2019-12-20] MEDS ORDERED: ACETAMINOPHEN 500 MG TABLET PO PRN (07:45)
[2019-12-20 07:52] LABS: UREA NITROGEN, BLOOD 118 mg/dL (8-21)
--- NOTE | 2019-12-20 08:20 | NUR ---
Called Dr. Bernstein with a consult, spoke with Halle from the exchange
[2019-12-20] MEDS ORDERED: MUPIROCIN 2% TOPICAL OINTMENT 22 GM NS PRN (08:30)
[2019-12-20] MEDS ORDERED: POTASSIUM CHLORIDE 20 MEQ TAB.PRT.SR PO PRN (08:30)
[2019-12-20] MEDS ORDERED: ACETAMINOPHEN 325 MG TABLET PO PRN (08:30)
[2019-12-20] MEDS ORDERED: DOCUSATE SODIUM 100 MG CAPSULE PO PRN (08:30)
[2019-12-20] MEDS ORDERED: DEXTROSE 50% JECT 50 ML DISP.SYRIN IVP PRN (08:30)
[2019-12-20] MEDS ORDERED: MAGNESIUM SULFATE 50 ML IV PRN (08:30)
[2019-12-20] MEDS ORDERED: ZOLPIDEM TARTRATE 5 MG TABLET PO PRN (08:30)
[2019-12-20] MEDS ORDERED: ONDANSETRON HCL 4 MG/2 ML VIAL IVP PRN (08:30)
[2019-12-20] MEDS ORDERED: LORazepam 2 MG/ML VIAL IVP PRN ×2 (08:30→20:00)
[2019-12-20] MEDS ORDERED: MORPHINE 2 MG/ML INJ. SYRINGE IVP PRN ×2 (08:30)
[2019-12-20] MEDS: HEPARIN SODIUM,PORCINE 5000 UNITS/ML VIAL SUBCUT SCH ×2 (09:00→20:54)
[2019-12-20] MEDS: D5NS 1,000 ML IV SCH (10:13)
[2019-12-20] MEDS ORDERED: IPRATROPIUM BROM 0.5 MG/2.5 ML VIAL.NEB (ATROVENT) INH PRN (10:15)
[2019-12-20] MEDS ORDERED: ALBUTEROL SULFATE 0.083% 2.5 MG/3 ML VIAL.NEB INH PRN (10:15)
--- NOTE | 2019-12-20 12:46 | NUR ---
RN Rounds Daughter at bedside at this time. Updated daughter regarding patient's condition. Patient sleeping with no signs of distress noted. Patient does not complain of pain.
[2019-12-20] MEDS: PIPERACILLIN/TAZO 2.25G/DEX-IS 50 ML IV SCH ×2 (13:44→18:10)
[2019-12-20] MEDS: ALBUTEROL SULFATE 0.083% 2.5 MG/3 ML VIAL.NEB INH SCH ×2 (13:57→19:50)
[2019-12-20] MEDS: IPRATROPIUM BROM 0.5 MG/2.5 ML VIAL.NEB (ATROVENT) INH SCH ×2 (13:58→19:50)
--- NOTE | 2019-12-20 14:47 | NUR ---
S.T. SWALLOW EVAL SWALLOW EVAL COMPLETED. DTR PRESENT. PT PRESENTS W/ SEV PHARYNGEAL DYSPHAGIA W/ SEVERE AND PROLONGED COUGHING ON 1/3 TSP HONEY THICK LIQUIDS INDICATING HIGH RISK FOR ASPIRATION. PT'S SEV LABOR OF BREATHING ALSO INCREASES HIS RISK FOR ASPIRATION. REC: NPO - ALTERNATIVE METHOD FOR FEEDING. NURSES OSWALDO AND PK NOTIFIED. DTR AND PT IN AGREEMENT W/ RESULTS AND REC. G8996 CM G8997 CM G8998 CM NOMS LEVEL 2
--- NOTE | 2019-12-20 14:54 | NUR ---
Steward/Stewardess Dining Room: Met with pt and pts. daughter, Oma Casiano, . Oma stepped out of ICU to speak to FREEZER ASSISTANT to conduct a DCPA. Daughter Oma stated she just wanted to ensure pt. is comfortable. She realizes pts' health is declining and may have multi organ failure, heart and kidneys. Daughter stated she is just sad at seeing her father's decline. She stated she feels her father was rushed out of [place] last week when he was discharged. Daugther would like pt to return to [facility] if and when he is discharged. She feels pt. is really declining. She requested a coordinator volunteer services come make a "sick call" for pt. Oma stated she is DPOA and that [facility] has the paperwork on file. Oma confirmed that her dad is DNR with some specifications for ex. pt. is currently getting a Picc line for a more direct way of receiving medication. Oma stated pt. has some dementia. She stated since she stopped giving her father pocket money he has found a way to obtain money. Pt. has begun recycling water bottles and they are filled with dirty, used latex gloves. She was concerned for pts. mental psyche. and had a psyc. diana apt. at the [facility] that was put on hold. FREEZER ASSISTANT called [facility] and spoke to Kiera, . She stated she will get a hold of their director of security to call the tenriism they work with to inquire about a professor of historical theology coming to see pt. today. Usually they have volunteers, priests that come to the facility on Fri. however, family member, Oma is making a request. FREEZER ASSISTANT will follow up with Kiera. FREEZER ASSISTANT called Oma to let her know a call has been made. FREEZER ASSISTANT will remain available as needed. Addendum: 12/20/19 at 1622 by Thais C. Graham FREEZER ASSISTANT FREEZER ASSISTANT called [facility] for follow up re. a professor of historical theology visit. Another law firm receptionist answered and stated the director of security there gave the phone number to Angel Cabrera in [place] to the ptsOma bernal. FREEZER ASSISTANT spoke to Oma who stated she did not received the message. FREEZER ASSISTANT stated she will call the tenriism and give her an update. Oma stated today or tomorrow is best as she does not feel her father is doing well. FREEZER ASSISTANT tried several times to call Angel Ledbetter of in [place], , but there was no answer. FREEZER ASSISTANT received phone call from Kiera from [facility]. she stated she has left a message for Angel Ledbetter and will follow up today or in the morning. FREEZER ASSISTANT thanked her for her efforts. FREEZER ASSISTANT called [facility] and spoke to Fa. Gross. He stated happily that he can make a hospital visit to see ptUyen Patrick in ICU. FREEZER ASSISTANT notified the medical office receptionist assistant, Jose Daniel Gregorio and daughter Oma.
--- NOTE | 2019-12-20 16:00 | NUR ---
RN Rounds Patient resting and in no signs of distress at this time. Safety precautions enforced.
[2019-12-20] MEDS: INSULIN LISPRO SLIDING SCALE 100 UNITS/ML VIAL (humaLOG) SUBCUT PRN ×2 (16:20→21:26)
--- NOTE | 2019-12-20 18:20 | NUR ---
RN Update Spoke with daughter/DPOA regarding code status. Per daughter Oma, she does not want another vasopressors if in case levophed is at maximum rate and patient still cannot obtain own blood pressure. Patient verbalized understanding of education.
[2019-12-20] MEDS: NOREPINEPHRINE BITARTRATE 4 MG in D5W 246 ML IV PRN ×2 (18:38→23:31)
--- NOTE | 2019-12-20 19:31 | NUR ---
Closing Note Patient endorsed to administrative project coordinator RN using SBAR format. Patient in no signs of distress at this time.
--- NOTE | 2019-12-20 20:06 | NUR ---
PAGED DR. MARC [phone] SPOKE WITH ROXANE
[2019-12-21] VITALS (15 sets, daily range): BP systolic 70–144
[2019-12-21] MEDS: PIPERACILLIN/TAZO 2.25G/DEX-IS 50 ML IV SCH ×2 (00:57→05:15)
[2019-12-21] MEDS: ALBUTEROL SULFATE 0.083% 2.5 MG/3 ML VIAL.NEB INH SCH ×4 (01:00→20:16)
[2019-12-21] MEDS: IPRATROPIUM BROM 0.5 MG/2.5 ML VIAL.NEB (ATROVENT) INH SCH ×4 (01:00→20:16)
[2019-12-21] MEDS: D5NS 1,000 ML IV SCH (01:06)
[2019-12-21] MEDS ORDERED: NOREPINEPHRINE 4 MG/4 ML VIAL IV ONE ×4 (02:38→06:56)
[2019-12-21 06:12] LABS: BASOPHILS % (AUTO) 0.3 % (0.0-2.0); EOSINOPHILS % (AUTO) 0.1 % (0.0-4.0); HEMATOCRIT 31.9 % (36-54); HEMOGLOBIN 10.4 g/dL (14.0-18.0); LYMPHOCYTES # (AUTO) 0.8 K/uL (1.0-5.5); LYMPHOCYTES % (AUTO) 8.5 % (20.5-51.5); MEAN CORPUSCULAR HEMOGLOBIN 31 pg (27-31); MEAN CORPUSCULAR HGB CONC 33 % (32-36); MEAN CORPUSCULAR VOLUME 94 fL (79.0-98.0); MONOCYTES # (AUTO) 0.6 K/uL (0.0-1.0); MONOCYTES % (AUTO) 6.2 % (1.7-9.3); NEUTROPHILS # (AUTO) 7.6 K/uL (1.8-7.7); NEUTROPHILS % (AUTO) 84.9 % (40.0-70.0); PLATELET COUNT (AUTO) 101 K/uL (130-430); RED BLOOD CELL COUNT(AUTO) 3.38 MIL/uL (4.2-6.2); RED CELL DISTRIBUTION WIDTH 17.7 % (9.0-15.0)
[2019-12-21 06:22] LABS: WHITE BLOOD COUNT (AUTO) 8.9 K/uL (4.8-10.8)
[2019-12-21 06:33] LABS: ALANINE AMINOTRANSFERASE 43 U/L (12-78); ALBUMIN 2.5 g/dL (3.4-4.8); ANION GAP 12 (5-15); ASPARTATE AMINOTRANSFERASE 99 U/L (10-37); CALCIUM 8.5 mg/dL (8.4-11.0); CHLORIDE 100 mmol/L (98-107); CREATININE 4.66 mg/dL (0.55-1.30); GLUCOSE 333 mg/dL (70-99); POTASSIUM 4.7 mmol/L (3.5-5.1); SODIUM SERUM 129 mmol/L (136-145); TOTAL BILIRUBIN 0.4 mg/dL (0.0-1.0)
[2019-12-21 07:18] LABS: UREA NITROGEN, BLOOD 122 mg/dL (8-21)
--- NOTE | 2019-12-21 08:06 | NUR ---
Spoke with Dr. Oneal about patient's bundle branch block and HR in 120s at beginning of shift. No new medication orders. Patient's HR lowered after titrating levo down. Levo now @ 12 mcg/kg. Endorsed to AR Parikh to report critical BUN and creatinine values. Pt continues to have blood tinged output from seymour. Heparin doses held.
--- NOTE | 2019-12-21 08:25 | NUR ---
Notified Dr. Nogueira at bedside of critical values this AM CR- 4.6 BUN- 122
[2019-12-21] MEDS ORDERED: methylPREDNISolone SOD SUCC 40 MG/ML VIAL IVP SCH (09:00)
[2019-12-21] MEDS ORDERED: ACETAMINOPHEN 650 MG SUPP.RECT RC PRN (09:15)
[2019-12-21] MEDS: HEPARIN SODIUM,PORCINE 5000 UNITS/ML VIAL SUBCUT SCH (09:20)
[2019-12-21] MEDS: INSULIN LISPRO SLIDING SCALE 100 UNITS/ML VIAL (humaLOG) SUBCUT PRN (09:27)
--- NOTE | 2019-12-21 10:25 | NUR ---
Dr. Fry discussed code status with patients daughter, daughter Oma verbalizes wabting to change code status to comfort measures only.
--- NOTE | 2019-12-21 10:27 | NUR ---
Nutrition Update Bentley Scale 15 noted. Pt admitted for chest pain. Diet: NPO BMI: 24.4 kg/m2 RD to follow per nutrition care standards.
--- NOTE | 2019-12-21 10:44 | NUR ---
patients daughter, Oma at bedside at this time, she asked that we review recent vital signs and current medications. Oma states she will be her all day so that she can speak with primary doctor.
[2019-12-21] MEDS ORDERED: LORazepam 2 MG/ML VIAL IM PRN (11:15)
[2019-12-21] MEDS ORDERED: MORPHINE I.V. DRIP 100 ML IV PRN (11:15)
[2019-12-21] MEDS ORDERED: MORPHINE PCA 50 mg/50 mL NS 50 ML IV PRN (11:30)
--- NOTE | 2019-12-21 11:46 | NUR ---
Levophed drip discontinued at [address] Hoang and patients, daughter and DPOA confirm new code status: comfort measures.
--- NOTE | 2019-12-21 13:29 | NUR ---
Patient transferred by bed from ICU-8 to room 101B at 1310 with assist of francesca Pinzon RN. Recieving AR Henao met patient and I in room 101
--- NOTE | 2019-12-21 13:30 | NUR ---
INITIAL NOTE PT RECEIVED BY ICU NURSE. PT ON 4L NASAL CANNULA. CABRERA DRAINING TO GRAVITY. SVP CHIEF MARKETING OFFICER PUMP BEING SET UP AT BEDSIDE, RUNNING AT 2ML/HR. PT RESTING, NO ACUTE DISTRESS NOTED, BREATHING EVEN AND UNLABORED. DAUGHTER AT BEDSIDE. CALL LIGHT WITHIN REACH, BED IN LOW AND LOCKED POSITION WITH BED ALARM ON. ISOLATION PRECAUTIONS IN PLACE.
--- NOTE | 2019-12-21 14:26 | NUR ---
Dietitian Recommendations * Continue SAMUEL SCHO[address] RD Please refer to Nutrition Assessment for details. Addendum: 12/21/19 at [address] Amended: Links added.
--- NOTE | 2019-12-21 15:30 | NUR ---
RN ROUNDS PT RESTING, NO ACUTE DISTRESS NOTED, BREATHING EVEN AND UNLABORED.
--- NOTE | 2019-12-21 17:30 | NUR ---
RN ROUNDS NO CHANGE IN ASSESSMENT, WILL CONTINUE TO MONITOR. FAMILY AT BEDSIDE.
--- NOTE | 2019-12-21 19:34 | NUR ---
CLOSING NOTE PT RESTING. PT ON 4L NC TOLERATING WELL. BREATHING EVEN AND UNLABORED. DISASTER RESPONSE DIRECTOR PUMP LOCKED AND INFUSING WELL. FAMILY AT BEDSIDE. CALL LIGHT WITHIN REACH, BED IN LOW AND LOCKED POSITION WITH BED ALARM ON. ISOLATION PRECAUTIONS IN PLACE. PT CARE ENDORSED TO EMD TEACHER RN.
--- NOTE | 2019-12-21 19:35 | NUR ---
Pt is lying comfortably in bed with family members at the bedside. Pt is non-verbal and on Oxygen at 4L/min per NC. DIRECTOR MOBILE Morphine is in progress at 2mg/hr (2ml/hr) via DIANNA PICC. Fregoso Catheter to gravity drainage noted with dark reginald colored urine. Fall, safety and contact isolation precautions are in place.
--- NOTE | 2019-12-21 21:00 | NUR ---
Condition remains unchanged. Family members are at the bedside. POLICE LIAISON Morphine is infusing well at 2mg/hr via DIANNA PICC with PICC dressing dry and intact.
--- NOTE | 2019-12-21 23:00 | NUR ---
Family members are still visiting at the bedside. Pt is sleeping without any respiratory distress noted. CABLE TV INSTALLER Morphine is infusing well. Fall and safety precautions are in place.
[2019-12-22 00:58] VITALS: BP_SYST 79
--- NOTE | 2019-12-22 01:00 | NUR ---
Pt is sleeping and easily arousable, but non-verbal. Morphine via STRUCTURAL BIOLOGIST pump is in progress. No respiratory distress noted. Pt's daughter is at the bedside and was given a recliner and a pillow.
--- NOTE | 2019-12-22 03:00 | NUR ---
Pt is sleeping without any respiratory distress noted. AVIATION MANAGER Morphine is infusing well in DIANNA PICC. Pt's daughter is in a recliner at the bedside. Fall and safety precautions are in place.
--- NOTE | 2019-12-22 05:00 | NUR ---
Pt's daughter remains at the bedside. Pt is sleeping, but easily arousable. Pt is non-verbal. WEBBING SUPERVISOR Morphine is infusing well via DIANNA PICC. Fall and safety precautions are in place.
--- NOTE | 2019-12-22 06:36 | NUR ---
Pt is resting comfortably in bed. No respiratory distress noted at this time. All pt's needs were attended to. EDITOR Morphine is infusing well via DIANNA PICC. Fall and safety precautions are in place. Will endorse to day shift nurse.
[2019-12-22 08:00] VITALS: BP_SYST 67
--- NOTE | 2019-12-22 09:52 | NUR ---
received patient with eyes closed. not responding to verbal or tactile stimuli. on Comfort measures. and patient is DNR. Daughter is at the bedside. Patient shows no S& S of Facial grimacing or distress. CIVIL CAD DESIGNER with morphine sulfate 2mg/hour continuous.
[2019-12-22] MEDS: IPRATROPIUM BROM 0.5 MG/2.5 ML VIAL.NEB (ATROVENT) INH SCH (10:21)
[2019-12-22] MEDS: ALBUTEROL SULFATE 0.083% 2.5 MG/3 ML VIAL.NEB INH SCH (10:22)
--- NOTE | 2019-12-22 10:22 | NUR ---
DC Planning: per Sylvia request, faxed updated info to fax# [phone] > per dr Hoang note: On comfort care per patient's and daughter's wishes. Poor prognosis. DNR. Off pressors. On Morphine at 2 mg iv drip today. BP around 70/30 today. RR around 12. All labs and consults have been dc'd. Ativan prn available. Pt is comfortable.
[2019-12-22 11:11] VITALS: BP_SYST 60
--- NOTE | 2019-12-22 15:12 | NUR ---
Patient's respirations stopped at 1218pm./ no pulse at 1218. Patient was pronounced at 1227pm by two RNs. Comfort measures/morphine sulfate via FBI SHARPSHOOTER stopped. Family (daughters) at the bedside at the time patient . Dr. Hoang notified at 1230; [employer] notified @ 1240. turned down surgical supply assistant informed at 1300. ( Rejected) home in to pickle water pump operator patient t 1445. family signed off on paperwork with the surgical supply assistant
== END 2019-12-22 12:27 | disposition expired | DRG 177 ==
LOC: SED 19:16 → STU 12-20 00:40 → SIC 12-20 02:37 → SMU 12-21 13:15 → STU 12-21 14:13 → SMU 12-21 14:16
PROVIDERS: ADMIT General Practice; ATTEND General Practice
PROC: 02HV33Z Insertion of Infusion Device into Superior Vena Cava, Percutaneous Approach (ICD-10-PCS; principal; 2019-12-20)
PROC: B548ZZA Ultrasonography of Superior Vena Cava, Guidance (ICD-10-PCS; 2019-12-20)
DX: J69.0 Pneumonitis due to inhalation of food and vomit (principal); I21.A1 Myocardial infarction type 2; N17.0 Acute kidney failure with tubular necrosis; N39.0 Urinary tract infection, site not specified; E44.1 Mild protein-calorie malnutrition; E87.1 Hypo-osmolality and hyponatremia; G93.40 Encephalopathy, unspecified; I13.0 Hypertensive heart and chronic kidney disease with heart failure and stage 1 through stage 4 chronic kidney disease, or unspecified chronic kidney disease; L03.113 Cellulitis of right upper limb; Z66 Do not resuscitate; E11.22 Type 2 diabetes mellitus with diabetic chronic kidney disease; E11.40 Type 2 diabetes mellitus with diabetic neuropathy, unspecified; E78.5 Hyperlipidemia, unspecified; F02.80 Dementia in other diseases classified elsewhere, unspecified severity, without behavioral disturbance, psychotic disturbance, mood disturbance, and anxiety; G30.9 Alzheimer's disease, unspecified; I50.9 Heart failure, unspecified; I25.10 Atherosclerotic heart disease of native coronary artery without angina pectoris; I46.9 Cardiac arrest, cause unspecified; R62.7 Adult failure to thrive; N18.9 Chronic kidney disease, unspecified; M10.9 Gout, unspecified; S41.111A Laceration without foreign body of right upper arm, initial encounter; X58.XXXA Exposure to other specified factors, initial encounter; R57.1 Hypovolemic shock; Z51.5 Encounter for palliative care; Z83.3 Family history of diabetes mellitus; Z95.1 Presence of aortocoronary bypass graft; Z95.5 Presence of coronary angioplasty implant and graft; Z79.4 Long term (current) use of insulin; Z79.899 Other long term (current) drug therapy; Z90.49 Acquired absence of other specified parts of digestive tract; Z68.24 Body mass index [BMI] 24.0-24.9, adult; Y93.89 Activity, other specified; Y92.89 Other specified places as the place of occurrence of the external cause; Y99.8 Other external cause status
CPT/HCPCS: 36415; 71045; 80048; 80053; 81000-TC; 82803-TC; 82962; 83036; 83605; 83735-TC; 83880; 84484; 85025; 86710; 87040-TC; 87081; 87086; 92610-GN; 93005; 94640; 94760; 96361; 96365; 96375; 96376; 99285; C1751; J1030; J1644; J1885; J2060; J2270; J2405; J2543; J7030; J7042; J7050; J7060; J7613